=== PATIENT | female | born 1945 | race Caucasian/White ===

== ENCOUNTER → 2019-07-01 | Outpatient (CLI) | payer MEDICARE, OTHER ==
--- NOTE | 2019-07-01 11:25 | Diagnostic Imaging Report ---
PROCEDURE: CT head without contrast. TECHNIQUE: Multiple contiguous axial images were obtained through the brain without the use of intravenous contrast. Auto Exposure Controls were utilized during the CT exam to meet ALARA standards for radiation dose reduction. INDICATION: Evaluate for metastatic disease. Recent breast biopsy. COMPARISON: None. FINDINGS: The ventricles and cortical sulci are age-appropriate. There is no midline shift or mass-effect. No acute intracranial hemorrhage is seen. There is no CT evidence of acute territorial ischemia. No focal masses or collections are present. The calvarium is intact. The visualized paranasal sinuses are clear. IMPRESSION: No hemorrhage or focal intra-axial mass. No CT evidence of large acute territorial ischemia. Dictated by: Dictated on workstation # [id number]
--- NOTE | 2019-07-01 11:39 | Diagnostic Imaging Report ---
PROCEDURE: CT chest, abdomen, and pelvis without contrast. TECHNIQUE: Multiple contiguous axial images were obtained through the chest, abdomen, and pelvis without the use of intravenous contrast. Auto Exposure Controls were utilized during the CT exam to meet ALARA standards for radiation dose reduction. INDICATION: Breast biopsy/breast lump CT CHEST: There is a lobulated 8.5 x 4.6 cm solid mass along the upper aspect of the left breast. There is loss of fat plane between the mass and underlying pectoralis muscle. There is no evidence of bone destruction. There are multiple enlarged left axillary lymph nodes measuring up to 2 cm long axis. In addition there is an approximately 1.9 x 0.9 cm nodule in the upper central right breast. There is mild hiatal hernia. There is no evidence of lung mass. No significant pleural or pericardial fluid is identified. There is sclerotic focus within T5 vertebral body of uncertain significance. IMPRESSION: Dominant mass in the left breast compatible with breast cancer. There is evidence of metastatic disease to the left axilla. In addition there is a suspicious 1.9 x 0.9 cm nodule in the central right breast which could be correlated with mammography. Nonspecific sclerotic focus at T5 vertebra. Bone scan may be of value to assess for osseous metastatic disease. CT abdomen and pelvis: There is mild low-density in the liver without focal hepatic or splenic lesion. Mild hiatal hernia is noted. There is no evidence of gallbladder, pancreatic or adrenal gland lesion. Kidneys are also unremarkable apart from a 1.5 cm exophytic cyst medially in the right kidney. There is no evidence of appendiceal inflammation. No bowel obstruction is identified. Unopacified bladder is unremarkable. IMPRESSION: No evidence of acute abnormality or metastatic disease within the abdomen or pelvis. Dictated by: Dictated on workstation # [id number]
--- NOTE | 2019-07-01 14:19 | Diagnostic Imaging Report ---
INDICATION: Left breast carcinoma. TECHNIQUE: Patient was administered 26.4 mCi technetium 99m MDP intravenously and whole body imaging was performed after three-hour delay. COMPARISON: No prior bone scans are available for comparison. Correlation is made with CT study from earlier the same day. FINDINGS: There is normal uptake of activity by the axial and appendicular skeleton. There is uptake by the kidneys with excretion into the urinary bladder. There is an abnormal focus of increased uptake involving the upper thoracic vertebral body, approximately T5. This likely correlates with the sclerotic focus at T5 noted on CT from the same day. There is also an area of uptake in the left iliac bone. There is a vague area of sclerosis at this location noted on CT measuring 16 mm. This is suggestive of a metastatic lesion. No other suspicious foci are identified. IMPRESSION: Findings suggestive of osseous metastases involving the T5 vertebral body as well as the left iliac bone. Dictated by: Dictated on workstation # [id number]
== END ==
LOC: CARD 10:33
PROVIDERS: ATTEND Internal Medicine
DX: C50.212 Malignant neoplasm of upper-inner quadrant of left female breast (principal); C77.3 Secondary and unspecified malignant neoplasm of axilla and upper limb lymph nodes
CPT/HCPCS: 70450; 71250; 74176; 78306

== ENCOUNTER 2019-07-15 09:40 | Outpatient (CLI) | payer MEDICARE, OTHER ==
[~2019-07-15] VITALS: Ht 162.6 cm; Wt 88.6 kg
[2019-07-15] MEDS ORDERED: C,E,1CAP PO (10:02)
[2019-07-15] MEDS ORDERED: MV-M1TAB57 PO (10:02)
[2019-07-16] MEDS ORDERED: HYDR-34 PO (11:41)
== END 2019-07-15 10:02 | disposition home or self-care (01) ==
LOC: PREOP 09:40
PROVIDERS: ATTEND Surgery
DX: Z01.818 Encounter for other preprocedural examination (principal)

== ENCOUNTER 2019-07-16 08:40 | Day surgery (SDC) | payer MEDICARE, OTHER ==
--- NOTE | 2019-07-15 14:58 | HISTORY AND PHYSICAL ---
DATE OF SERVICE: ATTENDING PHYSICIAN: Dr. Cartagena and Sia Oates, PRODUCTION POSTING CLERK PROCEDURE DATE: 07/16/2019. HISTORY OF PRESENT ILLNESS: The patient is a 73-year-old female, who is known to us. She was initially seen by us approximately two weeks ago for left breast biopsy for left breast distortion as well as retraction. At that time, she was found to have macerated areas as well as necrotic tissue of the left breast. It was a firm and fixed. There was no identifiable nipple or areola at that time. She did undergo a punch biopsy of the left breast tissue, which did come back as infiltrating mammary carcinoma, lobular type. She did also have palpable lymphadenopathy of the left axilla at that time. She was referred over to Oncology and underwent further testing as well as workup and reports that she was found to have metastatic disease to the spine. She reports that she was then referred back over to us in need of a PowerPort for chemotherapy. PAST MEDICAL HISTORY: None. PAST SURGICAL HISTORY: ORIF to the right arm in 1954, tonsillectomy in 1958 and in 1977. ALLERGIES: No known drug allergies. MEDICATIONS: None. SOCIAL HISTORY: Negative for smoke. Rare for alcohol. FAMILY HISTORY: Mother with colon cancer at 90 years of age, diabetes and hypertension. Brother with lung cancer at 43 years of age, diabetes and hypertension. Maternal cousins x3 with breast cancer. REVIEW OF SYSTEMS: A well-nourished female in no acute distress. She is not experiencing any shortness of breath or difficulty breathing. No chest pain, palpitations or diaphoresis. No nausea, vomiting, or abdominal pain. No diarrhea or constipation. No red blood per rectum. No dark tarry stools. No fever or chills. No recent inadvertent weight loss. All other review of systems are negative. PHYSICAL EXAMINATION: VITAL SIGNS: Stable. Current weight is 195.3 at 5 feet 4 inches. CHEST: Clear. Good breath sounds bilaterally. HEART: Regular, no murmurs. EXTREMITIES: No lower extremity edema. Negative Homans sign. HEENT: No scleral icterus. No cervical lymphadenopathy. ABDOMEN: Soft, nontender and nondistended. BREASTS: There is distortion of the left breast that does appear to be retracted in the middle of the breast with areas of maceration and necrotic tissue. This is firm and fixed upon palpation. There is no discharge noted. There is no visible nipple areola. There is palpable lymphadenopathy of the left axilla. There were no palpable masses of the right breast. SKIN: Warm, dry and pink. NEUROLOGIC: Awake, alert and oriented x3. ASSESSMENT AND PLAN: A 73-year-old female with left metastatic breast cancer. At this time, she is needing to undergo chemotherapy and thus will need a PowerPort. The risks and benefits of the procedure as well as the procedure and home care instructions were explained to the patient. The patient verbalized understanding of instructions and agrees to this plan. At this time, we will proceed with placement of an internal Groshong PowerPort Catheter. Job ID: [id number] DocumentID: [id number] Dictated Date: 07/14/2019 17:53:09 Felting Machine Operator Helper Date: 07/14/2019 18:21:23 Dictated By: USAMA ISSA APRN
[~2019-07-16] VITALS: Ht 162.6 cm; Wt 88.6 kg
[2019-07-16] VITALS (10 sets, daily range): BP systolic 122–161; BP diastolic 60–84
[~2019-07-16 08:40] MED LIST: C,E,1CAP PO; MV-M1TAB57 PO
[2019-07-16] MEDS ORDERED: LACTATED RINGERS 1,000 ML IV PRN (08:53)
[2019-07-16] MEDS ORDERED: ceFAZolin 2 GM IV Premixed 50 ML ONE (08:54)
[2019-07-16] MEDS ORDERED: ceFAZolin 2 GM IV Premixed 50 ML IV ONE (09:00)
[2019-07-16] MEDS ORDERED: 0.9% SODIUM CHLORIDE PF INJ 20 ML VIAL ONE ×2 (09:51→11:05)
[2019-07-16] MEDS ORDERED: HEParin (CENTRAL IV FLUSH) 500 UNIT/5 ML SYR ONE (09:51)
[2019-07-16] MEDS ORDERED: BUP/EPI 0.5% 1:200,000 (SENSORCAINE) 30 ML VIAL ONE ×2 (09:51→11:05)
[2019-07-16] MEDS ORDERED: proPOfol 200 MG/20 ML (DIPRIVAN) VIAL IV ONE (10:00)
[2019-07-16] MEDS ORDERED: LIDOCAINE PF 2% 5 ML (XYLOCAINE) VIAL ONE (10:00)
[2019-07-16] MEDS ORDERED: MIDAZOLAM 2 MG/2 ML (VERSED) VIAL ONE (10:01)
[2019-07-16] MEDS ORDERED: fentaNYL INJECTION 100 MCG/2 ML AMP ONE (10:01)
--- NOTE | 2019-07-16 11:39 | Progress Note-Pre Operative ---
Pre-Operative Progress Note H&P Reviewed The H&P was reviewed, patient examined and no changes noted. Date Seen by Provider: Jul 16, 2019 Time Seen by Provider: 10:00 Date H&P Reviewed: Jul 16, 2019 Time H&P Reviewed: 10:00 Pre-Operative Diagnosis: metastatic left breast cancer RAFAT WADE MD Jul 16, 2019 11:39 POS
[2019-07-16] MEDS ORDERED: HYDR-34 PO (11:41)
--- NOTE | 2019-07-16 11:42 | Discharge Inst-Surgical ---
D/C Lap Instructions-KIDO New, Converted, or Re-Newed RX: RX on Chart Follow Up PRN Activity as tolerated OK to access and use port at any time. Regular Diet Symptoms to Report: Fever over 101 degree F, Nausea/Vomiting Infection Signs and Symptoms to report: Increased redness, Foul odor of wound, Increased drainage Bathing instructions: May shower Operative Area Clean/Dry; Keep incision clean/dry If any problems/questions: Contact your physician or go to Emergency Room RAFAT WADE MD Jul 16, 2019 11:42 POS
[2019-07-16] MEDS ORDERED: morphine INJ 10 MG/ML 1ML (SYR OR VIAL) IVP PRN ×2 (11:45)
[2019-07-16] MEDS ORDERED: HYDROcodone/APAP 5 MG/325 MG (LORTAB) TAB PO ONE (11:45)
[2019-07-16] MEDS ORDERED: ACETAMINOPHEN 325 MG TABLET PO PRN (11:45)
[2019-07-16] MEDS ORDERED: ONDANSETRON 4 MG/2 ML (SDV) Z0FRAN IVP PRN (11:45)
[2019-07-16] MEDS ORDERED: MEPERIDINE (DEMEROL) INJ 50 MG/ML IVP ONE (12:15)
--- NOTE | 2019-07-16 12:33 | Diagnostic Imaging Report ---
INDICATION: Left breast cancer FINDINGS: A subclavian catheter has its tip at the SVC. There is no pneumothorax. Heart is enlarged. There is borderline vascular congestion but no sheyla edema, pneumonia or pleural fluid. IMPRESSION: Central line in the SVC. No pneumothorax. Borderline cardiomegaly and vascular congestion but no sheyla edema or pneumonia. Dictated by: Dictated on workstation # [id number]
--- NOTE | 2019-07-16 14:02 | Diagnostic Imaging Report ---
INDICATION: History of breast cancer, undergoing port placement. TECHNIQUE: Single intraprocedural images right upper chest. FINDINGS/ IMPRESSION: The hospital radiology department provided fluoroscopic imaging for the clinical service in support of an interventional procedure. A radiologist was not involved in the procedure. Please reference the operating provider's procedure note. Single intraprocedural image demonstrates a right subclavian [id number]-[id number]-[id number] catheter to be present. The catheter is incompletely imaged. Tip projects over the right paramediastinal region. Fluoroscopy Time: 7.7 seconds. Dictated by: Dictated on workstation # [id number]
--- NOTE | 2019-07-16 17:16 | Anesthesia-General Post-Op ---
MAC Patient Condition Mental Status/LOC: Same as Preop Cardiovascular: Satisfactory Nausea/Vomiting: Absent Respiratory: Satisfactory Pain: Controlled Complications: Absent Post Op Complications Complications None Follow Up Care/Instructions Patient Instructions None needed. Anesthesiology Discharge Order Discharge Order Patient was seen after the procedure and she was doing well, no complaints, stable vital signs, no apparent adverse anesthesia problems. GALE BARRETT DO Jul 16, 2019 17:16 POS
--- NOTE | 2019-07-16 19:36 | OPERATIVE REPORT ---
DATE OF SERVICE: 07/16/2019 ATTENDING PRIMARY CARE PHYSICIAN: Dr. Jose Cartagena. PREOPERATIVE DIAGNOSIS: Metastatic left breast cancer. POSTOPERATIVE DIAGNOSIS: Metastatic left breast cancer. PROCEDURE: Placement of right subclavian Groshong implantable catheter under fluoroscopy. SURGEON: Rafta Wade MD ANESTHESIA: Monitored anesthesia care with local. ESTIMATED BLOOD LOSS: Minimal. FINDINGS: Catheter tip at superior vena cava - right atrial junction. DISPOSITION: The patient tolerated the procedure well. INDICATIONS: The patient is a 73-year-old female who was seen by her POLITICAL SCIENCE INSTRUCTOR clinician and was found to have a large fungating breast mass along the left breast. This was clinically worrisome for cancer and this was confirmed by incisional biopsy. She then had further workup including a PET scan and CT scan, which did show a chest wall skin involvement as well as metastatic disease to the bone as well as lung. She has been seen by Oncology and the recommendation was to proceed with hormonal therapy as well as chemotherapy and will need a Groshong implantable catheter. DESCRIPTION OF PROCEDURE: The patient was brought to the operating room, laid supine on the table. After adequate IV pain and sedative medications and monitored anesthesia care, the chest and neck were prepped and draped in standard surgical fashion. A 1% lidocaine with epinephrine was used to anesthetize the overlying skin in the right subclavian region and the right subclavian vein was cannulated with drawing of venous blood. The guidewire was then inserted under fluoroscopy. The cannulating needle was removed and a skin incision was made using a 15 blade. The dilator and sheath were then placed over the guidewire. Guidewire and dilator were then removed and the Groshong catheter was then placed through the sheath until the catheter tip was at the superior vena cava - right atrial junction. The sheath was then removed. The inner wire within the catheter was then removed. The catheter was cut down to size and the PowerPort placed onto the catheter. The skin incision was then extended laterally using a 15 blade and a subcutaneous reservoir was then created along the chest between the subcutaneous fat and the anterior pectoralis fascia using blunt dissection as well as electrocautery with visualization of good hemostasis. The port was then placed into the reservoir and sutured to the anterior pectoralis fascia using interrupted 3-0 Vicryl sutures. Subcutaneous tissue was then reapproximated using 3-0 Vicryl interrupted sutures and the skin was closed using 4-0 Monocryl running subcuticular suture. Wound was then cleaned and covered with Dermabond. The patient tolerated the procedure well. We will get a post-procedure chest x-ray and once confirmation of placement of the port, it may be accessed and used at any time. Job ID: [id number] DocumentID: [id number] Dictated Date: 07/16/2019 11:50:53 Afternoon Babysitter Date: 07/16/2019 19:35:46 Dictated By: RAFAT WADE MD
== END 2019-07-16 13:50 | disposition home or self-care (01) ==
LOC: SDC 08:40
PROVIDERS: ATTEND Surgery
DX: C50.912 Malignant neoplasm of unspecified site of left female breast (principal); C79.51 Secondary malignant neoplasm of bone; Z79.891 Long term (current) use of opiate analgesic; Z90.89 Acquired absence of other organs; Z80.0 Family history of malignant neoplasm of digestive organs; Z83.3 Family history of diabetes mellitus; Z82.49 Family history of ischemic heart disease and other diseases of the circulatory system; Z80.1 Family history of malignant neoplasm of trachea, bronchus and lung; Z80.3 Family history of malignant neoplasm of breast
CPT/HCPCS: 71045; 87081

== ENCOUNTER → 2019-07-23 | Outpatient (CLI) | payer MEDICARE, OTHER ==
[~2019-07-23] MED LIST changes: +CATHETER FLUSH 10 ML SYR IV PRN; +HEParin (CENTRAL IV FLUSH) 500 UNIT/5 ML SYR ONE; +HYDR-34 PO
--- NOTE | 2019-07-23 13:49 | Diagnostic Imaging Report ---
INDICATION: Left breast carcinoma. TECHNIQUE: Patient was administered 32.3 mCi technetium 99m pertechnetate labeled to the patient's red blood cells and gated cardiac imaging was performed utilizing first pass technique. FINDINGS: Left ventricular ejection fraction is normal at 63%. IMPRESSION: Left ventricular ejection fraction of 63%. Dictated by: Dictated on workstation # [id number]
== END ==
LOC: CARD 12:24
PROVIDERS: ATTEND Nurse Practitioner Adult Health
DX: Z51.11 Encounter for antineoplastic chemotherapy (principal); C50.412 Malignant neoplasm of upper-outer quadrant of left female breast; C77.3 Secondary and unspecified malignant neoplasm of axilla and upper limb lymph nodes; C79.51 Secondary malignant neoplasm of bone
CPT/HCPCS: 78472

== ENCOUNTER 2019-09-28 09:00 | Outpatient (RCR) | payer MEDICARE, OTHER ==
[2019-07-08 09:30] LABS: BASOPHILS % (AUTO) 1 % (0-10); EOSINOPHILS # (AUTO) 0.1 10^3/uL (0.0-0.3); EOSINOPHILS % (AUTO) 2 % (0-10); HEMATOCRIT 46 % (35-52); HEMOGLOBIN 14.5 G/DL (11.5-16.0); LYMPHOCYTES # (AUTO) 1.8 X 10^3 (1.0-4.0); LYMPHOCYTES % (AUTO) 29 % (12-44); MEAN CORPUSCULAR HEMOGLOBIN 29 PG (25-34); MEAN CORPUSCULAR HGB CONC 32 G/DL (32-36); MEAN CORPUSCULAR VOLUME 90 FL (80-99); MEAN PLATELET VOLUME 9.5 FL (7.4-10.4); MONOCYTES # (AUTO) 0.5 X 10^3 (0.0-1.0); MONOCYTES % (AUTO) 8 % (0-12); NEUTROPHILS # (AUTO) 3.9 X 10^3 (1.8-7.8); NEUTROPHILS % (AUTO) 62 % (42-75); PLATELET COUNT 321 10^3/uL (130-400); RED CELL DISTRIBUTION WIDTH 14.2 % (10.0-14.5); WHITE BLOOD COUNT 6.3 10^3/uL (4.3-11.0)
[2019-07-08 09:51] LABS: ALANINE AMINOTRANSFERASE 69 U/L (0-55); ALBUMIN 4.1 GM/DL (3.2-4.5); ALKALINE PHOSPHATASE 70 U/L (40-136); BILIRUBIN,TOTAL 0.5 MG/DL (0.1-1.0); BUN/CREATININE RATIO 18; CALCIUM 9.4 MG/DL (8.5-10.1); CARBON DIOXIDE 25 MMOL/L (21-32); CHLORIDE 104 MMOL/L (98-107); CREATININE SERUM 0.76 MG/DL (0.60-1.30); GFR ESTIMATED > 60; GLUCOSE 163 MG/DL (70-105); POTASSIUM 3.8 MMOL/L (3.6-5.0); SODIUM 141 MMOL/L (135-145); TOTAL PROTEIN 7.7 GM/DL (6.4-8.2)
[2019-07-27 09:41] LABS: ALANINE AMINOTRANSFERASE 42 U/L (0-55); ALKALINE PHOSPHATASE 74 U/L (40-136); BILIRUBIN,TOTAL 0.4 MG/DL (0.1-1.0); BUN/CREATININE RATIO 18; CALCIUM 8.8 MG/DL (8.5-10.1); CARBON DIOXIDE 23 MMOL/L (21-32); CHLORIDE 108 MMOL/L (98-107); CREATININE SERUM 0.72 MG/DL (0.60-1.30); GFR ESTIMATED > 60; GLUCOSE 141 MG/DL (70-105); POTASSIUM 3.7 MMOL/L (3.6-5.0); SODIUM 140 MMOL/L (135-145); TOTAL PROTEIN 7.2 GM/DL (6.4-8.2)
[2019-08-03 09:23] LABS: BASOPHILS % (AUTO) 0 % (0-10); EOSINOPHILS % (AUTO) 0 % (0-10); HEMATOCRIT 40 % (35-52); HEMOGLOBIN 13.1 G/DL (11.5-16.0); LYMPHOCYTES % (AUTO) 21 % (12-44); MEAN CORPUSCULAR HEMOGLOBIN 29 PG (25-34); MEAN CORPUSCULAR HGB CONC 32 G/DL (32-36); MEAN CORPUSCULAR VOLUME 90 FL (80-99); MEAN PLATELET VOLUME 9.8 FL (7.4-10.4); MONOCYTES # (AUTO) 0.4 X 10^3 (0.0-1.0); MONOCYTES % (AUTO) 9 % (0-12); NEUTROPHILS # (AUTO) 3.4 X 10^3 (1.8-7.8); NEUTROPHILS % (AUTO) 70 % (42-75); PLATELET COUNT 314 10^3/uL (130-400); RED CELL DISTRIBUTION WIDTH 13.9 % (10.0-14.5); WHITE BLOOD COUNT 4.8 10^3/uL (4.3-11.0)
[2019-08-03 09:55] LABS: BUN/CREATININE RATIO 16; CALCIUM 8.8 MG/DL (8.5-10.1); CARBON DIOXIDE 21 MMOL/L (21-32); CHLORIDE 108 MMOL/L (98-107); CREATININE SERUM 0.73 MG/DL (0.60-1.30); GFR ESTIMATED > 60; GLUCOSE 127 MG/DL (70-105); POTASSIUM 3.8 MMOL/L (3.6-5.0); SODIUM 139 MMOL/L (135-145)
[2019-08-10 09:27] LABS: BASOPHILS % (AUTO) 0 % (0-10); EOSINOPHILS % (AUTO) 0 % (0-10); HEMATOCRIT 41 % (35-52); HEMOGLOBIN 13.5 G/DL (11.5-16.0); LYMPHOCYTES # (AUTO) 1.3 X 10^3 (1.0-4.0); LYMPHOCYTES % (AUTO) 27 % (12-44); MEAN CORPUSCULAR HEMOGLOBIN 29 PG (25-34); MEAN CORPUSCULAR HGB CONC 33 G/DL (32-36); MEAN CORPUSCULAR VOLUME 90 FL (80-99); MEAN PLATELET VOLUME 9.8 FL (7.4-10.4); MONOCYTES # (AUTO) 0.4 X 10^3 (0.0-1.0); MONOCYTES % (AUTO) 9 % (0-12); NEUTROPHILS # (AUTO) 3.2 X 10^3 (1.8-7.8); NEUTROPHILS % (AUTO) 64 % (42-75); PLATELET COUNT 318 10^3/uL (130-400); WHITE BLOOD COUNT 4.9 10^3/uL (4.3-11.0)
[2019-08-10 09:58] LABS: BUN/CREATININE RATIO 18; CARBON DIOXIDE 20 MMOL/L (21-32); CHLORIDE 106 MMOL/L (98-107); CREATININE SERUM 0.76 MG/DL (0.60-1.30); GFR ESTIMATED > 60; GLUCOSE 152 MG/DL (70-105); POTASSIUM 3.6 MMOL/L (3.6-5.0); SODIUM 140 MMOL/L (135-145)
[2019-08-17 09:04] LABS: BASOPHILS % (AUTO) 1 % (0-10); EOSINOPHILS % (AUTO) 0 % (0-10); HEMATOCRIT 39 % (35-52); HEMOGLOBIN 12.6 G/DL (11.5-16.0); LYMPHOCYTES # (AUTO) 1.2 X 10^3 (1.0-4.0); LYMPHOCYTES % (AUTO) 28 % (12-44); MEAN CORPUSCULAR HEMOGLOBIN 30 PG (25-34); MEAN CORPUSCULAR HGB CONC 33 G/DL (32-36); MEAN CORPUSCULAR VOLUME 91 FL (80-99); MEAN PLATELET VOLUME 9.4 FL (7.4-10.4); MONOCYTES # (AUTO) 0.5 X 10^3 (0.0-1.0); MONOCYTES % (AUTO) 12 % (0-12); NEUTROPHILS # (AUTO) 2.4 X 10^3 (1.8-7.8); NEUTROPHILS % (AUTO) 59 % (42-75); PLATELET COUNT 326 10^3/uL (130-400); RED CELL DISTRIBUTION WIDTH 14.3 % (10.0-14.5); WHITE BLOOD COUNT 4.1 10^3/uL (4.3-11.0)
[2019-08-17 09:24] LABS: BUN/CREATININE RATIO 16; CALCIUM 8.6 MG/DL (8.5-10.1); CARBON DIOXIDE 20 MMOL/L (21-32); CHLORIDE 108 MMOL/L (98-107); CREATININE SERUM 0.68 MG/DL (0.60-1.30); GFR ESTIMATED > 60; GLUCOSE 137 MG/DL (70-105); POTASSIUM 3.6 MMOL/L (3.6-5.0); SODIUM 141 MMOL/L (135-145)
[2019-08-24 09:15] LABS: BASOPHILS % (AUTO) 1 % (0-10); EOSINOPHILS # (AUTO) 0.1 10^3/uL (0.0-0.3); EOSINOPHILS % (AUTO) 1 % (0-10); HEMATOCRIT 40 % (35-52); HEMOGLOBIN 13.1 G/DL (11.5-16.0); LYMPHOCYTES # (AUTO) 1.5 X 10^3 (1.0-4.0); LYMPHOCYTES % (AUTO) 26 % (12-44); MEAN CORPUSCULAR HEMOGLOBIN 29 PG (25-34); MEAN CORPUSCULAR HGB CONC 33 G/DL (32-36); MEAN CORPUSCULAR VOLUME 88 FL (80-99); MONOCYTES # (AUTO) 0.8 X 10^3 (0.0-1.0); MONOCYTES % (AUTO) 15 % (0-12); NEUTROPHILS # (AUTO) 3.4 X 10^3 (1.8-7.8); NEUTROPHILS % (AUTO) 58 % (42-75); PLATELET COUNT 310 10^3/uL (130-400); RED CELL DISTRIBUTION WIDTH 14.8 % (10.0-14.5); WHITE BLOOD COUNT 5.8 10^3/uL (4.3-11.0)
[2019-08-24 09:42] LABS: ALANINE AMINOTRANSFERASE 66 U/L (0-55); ALBUMIN 3.9 GM/DL (3.2-4.5); ALKALINE PHOSPHATASE 74 U/L (40-136); BILIRUBIN,TOTAL 0.3 MG/DL (0.1-1.0); BUN/CREATININE RATIO 14; CALCIUM 8.8 MG/DL (8.5-10.1); CARBON DIOXIDE 21 MMOL/L (21-32); CHLORIDE 110 MMOL/L (98-107); CREATININE SERUM 0.72 MG/DL (0.60-1.30); GFR ESTIMATED > 60; GLUCOSE 130 MG/DL (70-105); POTASSIUM 3.8 MMOL/L (3.6-5.0); SODIUM 141 MMOL/L (135-145); TOTAL PROTEIN 6.8 GM/DL (6.4-8.2)
[2019-08-30 13:15] LABS: BASOPHILS % (AUTO) 1 % (0-10); EOSINOPHILS % (AUTO) 0 % (0-10); HEMATOCRIT 40 % (35-52); HEMOGLOBIN 12.8 G/DL (11.5-16.0); LYMPHOCYTES # (AUTO) 1.2 X 10^3 (1.0-4.0); LYMPHOCYTES % (AUTO) 21 % (12-44); MEAN CORPUSCULAR HEMOGLOBIN 29 PG (25-34); MEAN CORPUSCULAR HGB CONC 32 G/DL (32-36); MEAN CORPUSCULAR VOLUME 90 FL (80-99); MEAN PLATELET VOLUME 9.8 FL (7.4-10.4); MONOCYTES # (AUTO) 0.4 X 10^3 (0.0-1.0); MONOCYTES % (AUTO) 7 % (0-12); NEUTROPHILS # (AUTO) 3.9 X 10^3 (1.8-7.8); NEUTROPHILS % (AUTO) 71 % (42-75); PLATELET COUNT 288 10^3/uL (130-400); RED CELL DISTRIBUTION WIDTH 14.5 % (10.0-14.5); WHITE BLOOD COUNT 5.4 10^3/uL (4.3-11.0)
[2019-08-30 13:34] LABS: BUN/CREATININE RATIO 18; CALCIUM 8.5 MG/DL (8.5-10.1); CARBON DIOXIDE 21 MMOL/L (21-32); CHLORIDE 107 MMOL/L (98-107); CREATININE SERUM 0.74 MG/DL (0.60-1.30); GFR ESTIMATED > 60; GLUCOSE 180 MG/DL (70-105); POTASSIUM 4.1 MMOL/L (3.6-5.0); SODIUM 139 MMOL/L (135-145)
[2019-09-07 09:15] LABS: BASOPHILS % (AUTO) 1 % (0-10); EOSINOPHILS # (AUTO) 0.2 10^3/uL (0.0-0.3); EOSINOPHILS % (AUTO) 4 % (0-10); HEMATOCRIT 38 % (35-52); HEMOGLOBIN 12.3 G/DL (11.5-16.0); LYMPHOCYTES # (AUTO) 1.4 X 10^3 (1.0-4.0); LYMPHOCYTES % (AUTO) 34 % (12-44); MEAN CORPUSCULAR HEMOGLOBIN 29 PG (25-34); MEAN CORPUSCULAR HGB CONC 33 G/DL (32-36); MEAN CORPUSCULAR VOLUME 91 FL (80-99); MEAN PLATELET VOLUME 9.5 FL (7.4-10.4); MONOCYTES # (AUTO) 0.5 X 10^3 (0.0-1.0); MONOCYTES % (AUTO) 13 % (0-12); NEUTROPHILS % (AUTO) 49 % (42-75); PLATELET COUNT 308 10^3/uL (130-400); RED CELL DISTRIBUTION WIDTH 14.9 % (10.0-14.5); WHITE BLOOD COUNT 4.2 10^3/uL (4.3-11.0)
[2019-09-07 09:32] LABS: BUN/CREATININE RATIO 15; CALCIUM 8.5 MG/DL (8.5-10.1); CARBON DIOXIDE 20 MMOL/L (21-32); CHLORIDE 110 MMOL/L (98-107); CREATININE SERUM 0.68 MG/DL (0.60-1.30); GFR ESTIMATED > 60; GLUCOSE 113 MG/DL (70-105); POTASSIUM 3.7 MMOL/L (3.6-5.0); SODIUM 143 MMOL/L (135-145)
[2019-09-14 09:12] LABS: BASOPHILS % (AUTO) 1 % (0-10); EOSINOPHILS % (AUTO) 0 % (0-10); HEMATOCRIT 41 % (35-52); HEMOGLOBIN 13.4 G/DL (11.5-16.0); LYMPHOCYTES # (AUTO) 1.5 X 10^3 (1.0-4.0); LYMPHOCYTES % (AUTO) 32 % (12-44); MEAN CORPUSCULAR HEMOGLOBIN 30 PG (25-34); MEAN CORPUSCULAR HGB CONC 33 G/DL (32-36); MEAN CORPUSCULAR VOLUME 90 FL (80-99); MEAN PLATELET VOLUME 9.9 FL (7.4-10.4); MONOCYTES # (AUTO) 0.5 X 10^3 (0.0-1.0); MONOCYTES % (AUTO) 11 % (0-12); NEUTROPHILS # (AUTO) 2.6 X 10^3 (1.8-7.8); NEUTROPHILS % (AUTO) 57 % (42-75); PLATELET COUNT 303 10^3/uL (130-400); RED CELL DISTRIBUTION WIDTH 15.2 % (10.0-14.5); WHITE BLOOD COUNT 4.6 10^3/uL (4.3-11.0)
[2019-09-14 09:28] LABS: BUN/CREATININE RATIO 19; CALCIUM 9.2 MG/DL (8.5-10.1); CARBON DIOXIDE 18 MMOL/L (21-32); CHLORIDE 109 MMOL/L (98-107); CREATININE SERUM 0.68 MG/DL (0.60-1.30); GFR ESTIMATED > 60; GLUCOSE 118 MG/DL (70-105); POTASSIUM 3.9 MMOL/L (3.6-5.0); SODIUM 141 MMOL/L (135-145)
[2019-09-21 10:42] LABS: BASOPHILS % (AUTO) 1 % (0-10); EOSINOPHILS # (AUTO) 0.1 10^3/uL (0.0-0.3); EOSINOPHILS % (AUTO) 1 % (0-10); HEMATOCRIT 40 % (35-52); HEMOGLOBIN 12.8 G/DL (11.5-16.0); LYMPHOCYTES # (AUTO) 1.5 X 10^3 (1.0-4.0); LYMPHOCYTES % (AUTO) 29 % (12-44); MEAN CORPUSCULAR HEMOGLOBIN 29 PG (25-34); MEAN CORPUSCULAR HGB CONC 32 G/DL (32-36); MEAN CORPUSCULAR VOLUME 90 FL (80-99); MEAN PLATELET VOLUME 9.2 FL (7.4-10.4); MONOCYTES # (AUTO) 0.8 X 10^3 (0.0-1.0); MONOCYTES % (AUTO) 16 % (0-12); NEUTROPHILS # (AUTO) 2.9 X 10^3 (1.8-7.8); NEUTROPHILS % (AUTO) 54 % (42-75); PLATELET COUNT 309 10^3/uL (130-400); RED CELL DISTRIBUTION WIDTH 15.4 % (10.0-14.5); WHITE BLOOD COUNT 5.4 10^3/uL (4.3-11.0)
[2019-09-21 11:09] LABS: ALANINE AMINOTRANSFERASE 83 U/L (0-55); ALBUMIN 4.1 GM/DL (3.2-4.5); ALKALINE PHOSPHATASE 66 U/L (40-136); BILIRUBIN,TOTAL 0.5 MG/DL (0.1-1.0); BUN/CREATININE RATIO 16; CALCIUM 9.1 MG/DL (8.5-10.1); CARBON DIOXIDE 20 MMOL/L (21-32); CHLORIDE 109 MMOL/L (98-107); GFR ESTIMATED > 60; GLUCOSE 109 MG/DL (70-105); POTASSIUM 3.5 MMOL/L (3.6-5.0); SODIUM 141 MMOL/L (135-145); TOTAL PROTEIN 6.9 GM/DL (6.4-8.2)
[~2019-09-28] VITALS: Ht 161.3 cm; Wt 88.9 kg
[~2019-09-28 09:00] MED LIST changes: -CATHETER FLUSH 10 ML SYR IV PRN; -HEParin (CENTRAL IV FLUSH) 500 UNIT/5 ML SYR ONE; +NS IV 1000 ML (CANCER CTR) IV SCH; +NS IV SCH; +ONDANSETRON MDV (CANCER CENTER 16 MG, DEXAMETHASONE INJECTION 10 MG in NS (IVPB) CANCER... IV SCH; +PACLitaxel PROTEIN 160 MG in EMPTY IV BAG (PVC) CANCER CTR 1 EA IV SCH; +TRASTUZUMAB IV SCH; +ZOLEDRONIC ACID (CANCER CTR) 4 MG in NS (IVPB) CANCER CENTER 100 ML IV SCH
[2019-09-28 09:20] LABS: BASOPHILS % (AUTO) 1 % (0-10); EOSINOPHILS # (AUTO) 0.1 10^3/uL (0.0-0.3); EOSINOPHILS % (AUTO) 1 % (0-10); HEMATOCRIT 39 % (35-52); HEMOGLOBIN 12.6 G/DL (11.5-16.0); LYMPHOCYTES # (AUTO) 1.1 X 10^3 (1.0-4.0); LYMPHOCYTES % (AUTO) 17 % (12-44); MEAN CORPUSCULAR HEMOGLOBIN 29 PG (25-34); MEAN CORPUSCULAR HGB CONC 32 G/DL (32-36); MEAN CORPUSCULAR VOLUME 90 FL (80-99); MEAN PLATELET VOLUME 9.5 FL (7.4-10.4); MONOCYTES # (AUTO) 0.6 X 10^3 (0.0-1.0); MONOCYTES % (AUTO) 9 % (0-12); NEUTROPHILS # (AUTO) 4.6 X 10^3 (1.8-7.8); NEUTROPHILS % (AUTO) 72 % (42-75); PLATELET COUNT 292 10^3/uL (130-400); RED CELL DISTRIBUTION WIDTH 15.2 % (10.0-14.5); WHITE BLOOD COUNT 6.4 10^3/uL (4.3-11.0)
[2019-09-28 09:46] LABS: BUN/CREATININE RATIO 16; CALCIUM 8.7 MG/DL (8.5-10.1); CARBON DIOXIDE 20 MMOL/L (21-32); CHLORIDE 106 MMOL/L (98-107); CREATININE SERUM 0.73 MG/DL (0.60-1.30); GFR ESTIMATED > 60; GLUCOSE 119 MG/DL (70-105); POTASSIUM 3.7 MMOL/L (3.6-5.0); SODIUM 138 MMOL/L (135-145)
== END 2019-09-30 | disposition home or self-care (01) ==
LOC: ONC 09:00
PROVIDERS: ATTEND Internal Medicine Hematology & Oncology
DX: Z51.11 Encounter for antineoplastic chemotherapy (principal); C50.212 Malignant neoplasm of upper-inner quadrant of left female breast; C77.3 Secondary and unspecified malignant neoplasm of axilla and upper limb lymph nodes
CPT/HCPCS: 36415; 36591; 80048; 80053; 82306; 85025; 86300; 96367; 96375; 96413; 96417; 99213; 99214

== ENCOUNTER → 2019-10-14 | Outpatient (CLI) | payer MEDICARE, OTHER ==
[~2019-10-14] MED LIST changes: +CATHETER FLUSH 10 ML SYR IV PRN; +HOLD METFORMIN - RECEIVED CONTRAST 20 ML VIAL IV SCH; +IOHEXOL 350 MG/ML 100 ML (OMNIPAQUE 350) VIAL IV ONE; +NS 100 ML (IVPB) BAG IV ONE; -NS IV 1000 ML (CANCER CTR) IV SCH; -NS IV SCH; -ONDANSETRON MDV (CANCER CENTER 16 MG, DEXAMETHASONE INJECTION 10 MG in NS (IVPB) CANCER... IV SCH; -PACLitaxel PROTEIN 160 MG in EMPTY IV BAG (PVC) CANCER CTR 1 EA IV SCH; -TRASTUZUMAB IV SCH; -ZOLEDRONIC ACID (CANCER CTR) 4 MG in NS (IVPB) CANCER CENTER 100 ML IV SCH
--- NOTE | 2019-10-14 12:53 | Diagnostic Imaging Report ---
PROCEDURE: CT chest and abdomen with contrast. TECHNIQUE: Multiple contiguous axial images were obtained through the chest and abdomen after the administration of intravenous contrast. Auto Exposure Controls were utilized during the CT exam to meet ALARA standards for radiation dose reduction. INDICATION: Breast carcinoma. COMPARISON: Comparison is made with prior CT from 07/01/2019. CT CHEST: Hyperdense lesion in the upper aspect of the right breast is again noted measuring 1.6 x 1.0 cm compared with 1.9 x 0.9 cm on prior. The previously noted large left breast mass does show some decrease in size, measuring approximately 4.9 x 1.8 cm compared with 8.5 x 4.6 cm. Again, there is loss of the fat plane between the left breast mass and the left chest wall pectoralis musculature. The lymph nodes in the left axilla have reduced in size. The right axilla is unremarkable. No internal mammary lymphadenopathy is detected. No definite hilar or mediastinal lymphadenopathy is detected. There is no pericardial or pleural fluid identified. There is some scarring or atelectasis in the lingula and left lower lobe as well as right middle lobe. No pulmonary nodule or mass is seen. Sclerotic lesion involving approximately T5 vertebral body is again noted. IMPRESSION: 1. Decrease in size of left breast mass since prior CT 07/01/2019 with improving left axillary lymphadenopathy. No definite thoracic lymphadenopathy is seen. There are no findings to suggest pulmonary metastatic disease. Note is made of masslike density in the upper right breast, similar to prior exam. 2. Stable thoracic sclerotic lesion. CT ABDOMEN: The liver demonstrates diffuse low density consistent with hepatic steatosis. No discrete liver mass is identified. The gallbladder is unremarkable. Pancreas and spleen are unremarkable. No adrenal mass is detected. Kidneys are unremarkable. Aorta is non-aneurysmal. No central retroperitoneal or mesenteric lymphadenopathy is seen. The small and large bowel loops are normal caliber. There is no ascites. Osseous structures are unremarkable. IMPRESSION: 1. Hepatic steatosis. 2. No evidence of abdominal lymphadenopathy or metastatic disease. Dictated by: Dictated on workstation # [id number]
--- NOTE | 2019-10-14 15:30 | Diagnostic Imaging Report ---
INDICATION: Breast carcinoma. TECHNIQUE: Patient was administered 26.9 mCi technetium 99m MDP intravenously and whole body imaging was performed after three-hour delay. COMPARISON: Comparison is made with prior whole body bone scan from 07/01/2019. FINDINGS: Uptake of activity by the axial and appendicular skeleton is again noted. There is uptake by the kidneys with excretion into the urinary bladder. The uptake involving T5 vertebral body persists. Uptake in the region of the left iliac bone is also seen, similar to prior. No new focus of tracer accumulation is seen. IMPRESSION: Stable whole body bone scan when compared with exam from 07/01/2019. Dictated by: Dictated on workstation # [id number]
== END ==
LOC: CARD 10:52
PROVIDERS: ATTEND Internal Medicine Hematology & Oncology
DX: C50.812 Malignant neoplasm of overlapping sites of left female breast (principal); C79.51 Secondary malignant neoplasm of bone; K76.0 Fatty (change of) liver, not elsewhere classified
CPT/HCPCS: 71260; 74160; 78306

== ENCOUNTER 2019-12-28 08:49 | Outpatient (RCR) | payer MEDICARE, OTHER ==
[2019-10-05 09:07] LABS: BASOPHILS % (AUTO) 1 % (0-10); EOSINOPHILS % (AUTO) 0 % (0-10); HEMATOCRIT 39 % (35-52); HEMOGLOBIN 12.9 G/DL (11.5-16.0); LYMPHOCYTES # (AUTO) 1.4 X 10^3 (1.0-4.0); LYMPHOCYTES % (AUTO) 34 % (12-44); MEAN CORPUSCULAR HEMOGLOBIN 30 PG (25-34); MEAN CORPUSCULAR HGB CONC 33 G/DL (32-36); MEAN CORPUSCULAR VOLUME 90 FL (80-99); MEAN PLATELET VOLUME 9.6 FL (7.4-10.4); MONOCYTES # (AUTO) 0.4 X 10^3 (0.0-1.0); MONOCYTES % (AUTO) 10 % (0-12); NEUTROPHILS # (AUTO) 2.2 X 10^3 (1.8-7.8); NEUTROPHILS % (AUTO) 55 % (42-75); PLATELET COUNT 329 10^3/uL (130-400); RED CELL DISTRIBUTION WIDTH 15.2 % (10.0-14.5)
[2019-10-05 09:28] LABS: BUN/CREATININE RATIO 22; CALCIUM 9.5 MG/DL (8.5-10.1); CARBON DIOXIDE 21 MMOL/L (21-32); CHLORIDE 107 MMOL/L (98-107); CREATININE SERUM 0.69 MG/DL (0.60-1.30); GFR ESTIMATED > 60; GLUCOSE 125 MG/DL (70-105); POTASSIUM 3.6 MMOL/L (3.6-5.0); SODIUM 140 MMOL/L (135-145)
[2019-10-12 09:19] LABS: BASOPHILS % (AUTO) 1 % (0-10); EOSINOPHILS % (AUTO) 0 % (0-10); HEMATOCRIT 37 % (35-52); HEMOGLOBIN 12.4 G/DL (11.5-16.0); LYMPHOCYTES % (AUTO) 29 % (12-44); MEAN CORPUSCULAR HGB CONC 34 G/DL (32-36); MEAN CORPUSCULAR VOLUME 91 FL (80-99); MEAN PLATELET VOLUME 9.5 FL (7.4-10.4); MONOCYTES # (AUTO) 0.4 X 10^3 (0.0-1.0); MONOCYTES % (AUTO) 11 % (0-12); NEUTROPHILS # (AUTO) 2.1 X 10^3 (1.8-7.8); NEUTROPHILS % (AUTO) 60 % (42-75); PLATELET COUNT 318 10^3/uL (130-400); RED CELL DISTRIBUTION WIDTH 15.7 % (10.0-14.5); WHITE BLOOD COUNT 3.5 10^3/uL (4.3-11.0)
[2019-10-12 09:21] LABS: MEAN CORPUSCULAR HEMOGLOBIN 30 PG (25-34)
[2019-10-12 09:35] LABS: BUN/CREATININE RATIO 16; CALCIUM 8.5 MG/DL (8.5-10.1); CARBON DIOXIDE 24 MMOL/L (21-32); CHLORIDE 108 MMOL/L (98-107); CREATININE SERUM 0.69 MG/DL (0.60-1.30); GFR ESTIMATED > 60; GLUCOSE 148 MG/DL (70-105); POTASSIUM 3.5 MMOL/L (3.6-5.0); SODIUM 140 MMOL/L (135-145)
[2019-10-19 13:36] LABS: BASOPHILS # (AUTO) 0.1 10^3/uL (0.0-0.1); BASOPHILS % (AUTO) 1 % (0-10); EOSINOPHILS % (AUTO) 0 % (0-10); HEMATOCRIT 39 % (35-52); HEMOGLOBIN 12.6 G/DL (11.5-16.0); LYMPHOCYTES # (AUTO) 1.3 X 10^3 (1.0-4.0); LYMPHOCYTES % (AUTO) 27 % (12-44); MEAN CORPUSCULAR HEMOGLOBIN 30 PG (25-34); MEAN CORPUSCULAR HGB CONC 33 G/DL (32-36); MEAN CORPUSCULAR VOLUME 91 FL (80-99); MEAN PLATELET VOLUME 9.3 FL (7.4-10.4); MONOCYTES # (AUTO) 0.8 X 10^3 (0.0-1.0); MONOCYTES % (AUTO) 18 % (0-12); NEUTROPHILS # (AUTO) 2.6 X 10^3 (1.8-7.8); NEUTROPHILS % (AUTO) 54 % (42-75); PLATELET COUNT 329 10^3/uL (130-400); RED CELL DISTRIBUTION WIDTH 15.4 % (10.0-14.5); WHITE BLOOD COUNT 4.8 10^3/uL (4.3-11.0)
[2019-10-19 14:00] LABS: ALANINE AMINOTRANSFERASE 82 U/L (0-55); ALBUMIN 3.9 GM/DL (3.2-4.5); ALKALINE PHOSPHATASE 53 U/L (40-136); BILIRUBIN,TOTAL 0.3 MG/DL (0.1-1.0); BUN/CREATININE RATIO 16; CALCIUM 8.2 MG/DL (8.5-10.1); CARBON DIOXIDE 23 MMOL/L (21-32); CHLORIDE 108 MMOL/L (98-107); CREATININE SERUM 0.68 MG/DL (0.60-1.30); GFR ESTIMATED > 60; GLUCOSE 144 MG/DL (70-105); POTASSIUM 3.6 MMOL/L (3.6-5.0); SODIUM 139 MMOL/L (135-145); TOTAL PROTEIN 6.7 GM/DL (6.4-8.2)
[2019-10-26 09:10] LABS: BASOPHILS % (AUTO) 1 % (0-10); EOSINOPHILS % (AUTO) 0 % (0-10); HEMATOCRIT 38 % (35-52); HEMOGLOBIN 12.2 G/DL (11.5-16.0); LYMPHOCYTES # (AUTO) 1.1 X 10^3 (1.0-4.0); LYMPHOCYTES % (AUTO) 19 % (12-44); MEAN CORPUSCULAR HGB CONC 32 G/DL (32-36); MEAN CORPUSCULAR VOLUME 92 FL (80-99); MEAN PLATELET VOLUME 9.8 FL (7.4-10.4); MONOCYTES # (AUTO) 0.4 X 10^3 (0.0-1.0); MONOCYTES % (AUTO) 7 % (0-12); NEUTROPHILS # (AUTO) 4.1 X 10^3 (1.8-7.8); NEUTROPHILS % (AUTO) 73 % (42-75); PLATELET COUNT 296 10^3/uL (130-400); RED CELL DISTRIBUTION WIDTH 15.4 % (10.0-14.5); WHITE BLOOD COUNT 5.7 10^3/uL (4.3-11.0)
[2019-10-26 09:12] LABS: MEAN CORPUSCULAR HEMOGLOBIN 29 PG (25-34)
[2019-10-26 09:27] LABS: BUN/CREATININE RATIO 13; CALCIUM 8.2 MG/DL (8.5-10.1); CARBON DIOXIDE 22 MMOL/L (21-32); CHLORIDE 108 MMOL/L (98-107); GFR ESTIMATED > 60; GLUCOSE 145 MG/DL (70-105); POTASSIUM 3.4 MMOL/L (3.6-5.0); SODIUM 140 MMOL/L (135-145)
[2019-11-02 09:34] LABS: BASOPHILS % (AUTO) 1 % (0-10); EOSINOPHILS # (AUTO) 0.1 10^3/uL (0.0-0.3); EOSINOPHILS % (AUTO) 2 % (0-10); HEMATOCRIT 37 % (35-52); LYMPHOCYTES # (AUTO) 0.9 X 10^3 (1.0-4.0); LYMPHOCYTES % (AUTO) 30 % (12-44); MEAN CORPUSCULAR HEMOGLOBIN 30 PG (25-34); MEAN CORPUSCULAR HGB CONC 33 G/DL (32-36); MEAN CORPUSCULAR VOLUME 92 FL (80-99); MEAN PLATELET VOLUME 10.2 FL (7.4-10.4); MONOCYTES # (AUTO) 0.3 X 10^3 (0.0-1.0); MONOCYTES % (AUTO) 9 % (0-12); NEUTROPHILS # (AUTO) 1.8 X 10^3 (1.8-7.8); NEUTROPHILS % (AUTO) 59 % (42-75); PLATELET COUNT 273 10^3/uL (130-400); RED CELL DISTRIBUTION WIDTH 15.7 % (10.0-14.5); WHITE BLOOD COUNT 3.1 10^3/uL (4.3-11.0)
[2019-11-02 09:46] LABS: ALANINE AMINOTRANSFERASE 84 U/L (0-55); ALBUMIN 3.9 GM/DL (3.2-4.5); ALKALINE PHOSPHATASE 53 U/L (40-136); BILIRUBIN,TOTAL 0.4 MG/DL (0.1-1.0); BUN/CREATININE RATIO 20; CALCIUM 8.6 MG/DL (8.5-10.1); CARBON DIOXIDE 25 MMOL/L (21-32); CHLORIDE 110 MMOL/L (98-107); GFR ESTIMATED > 60; GLUCOSE 141 MG/DL (70-105); POTASSIUM 3.6 MMOL/L (3.6-5.0); SODIUM 142 MMOL/L (135-145); TOTAL PROTEIN 6.3 GM/DL (6.4-8.2)
[2019-11-09 09:20] LABS: BASOPHILS % (AUTO) 1 % (0-10); EOSINOPHILS % (AUTO) 0 % (0-10); HEMATOCRIT 38 % (35-52); HEMOGLOBIN 12.2 G/DL (11.5-16.0); LYMPHOCYTES # (AUTO) 1.1 X 10^3 (1.0-4.0); LYMPHOCYTES % (AUTO) 34 % (12-44); MEAN CORPUSCULAR HEMOGLOBIN 30 PG (25-34); MEAN CORPUSCULAR HGB CONC 32 G/DL (32-36); MEAN CORPUSCULAR VOLUME 92 FL (80-99); MONOCYTES # (AUTO) 0.3 X 10^3 (0.0-1.0); MONOCYTES % (AUTO) 10 % (0-12); NEUTROPHILS # (AUTO) 1.8 X 10^3 (1.8-7.8); NEUTROPHILS % (AUTO) 55 % (42-75); PLATELET COUNT 314 10^3/uL (130-400); WHITE BLOOD COUNT 3.3 10^3/uL (4.3-11.0)
[2019-11-09 09:44] LABS: ALANINE AMINOTRANSFERASE 80 U/L (0-55); ALBUMIN 3.9 GM/DL (3.2-4.5); ALKALINE PHOSPHATASE 50 U/L (40-136); BILIRUBIN,TOTAL 0.6 MG/DL (0.1-1.0); BUN/CREATININE RATIO 14; CALCIUM 8.9 MG/DL (8.5-10.1); CARBON DIOXIDE 23 MMOL/L (21-32); CHLORIDE 109 MMOL/L (98-107); CREATININE SERUM 0.76 MG/DL (0.60-1.30); GFR ESTIMATED > 60; GLUCOSE 142 MG/DL (70-105); POTASSIUM 3.6 MMOL/L (3.6-5.0); SODIUM 143 MMOL/L (135-145); TOTAL PROTEIN 6.5 GM/DL (6.4-8.2)
[2019-11-16 09:44] LABS: BASOPHILS % (AUTO) 1 % (0-10); EOSINOPHILS # (AUTO) 0.1 10^3/uL (0.0-0.3); EOSINOPHILS % (AUTO) 1 % (0-10); HEMATOCRIT 41 % (35-52); HEMOGLOBIN 13.5 G/DL (11.5-16.0); LYMPHOCYTES # (AUTO) 1.2 X 10^3 (1.0-4.0); LYMPHOCYTES % (AUTO) 27 % (12-44); MEAN CORPUSCULAR HEMOGLOBIN 30 PG (25-34); MEAN CORPUSCULAR HGB CONC 33 G/DL (32-36); MEAN CORPUSCULAR VOLUME 91 FL (80-99); MEAN PLATELET VOLUME 9.3 FL (7.4-10.4); MONOCYTES % (AUTO) 21 % (0-12); NEUTROPHILS # (AUTO) 2.3 X 10^3 (1.8-7.8); NEUTROPHILS % (AUTO) 51 % (42-75); PLATELET COUNT 311 10^3/uL (130-400); RED CELL DISTRIBUTION WIDTH 15.7 % (10.0-14.5); WHITE BLOOD COUNT 4.6 10^3/uL (4.3-11.0)
[2019-11-16 10:03] LABS: ALANINE AMINOTRANSFERASE 72 U/L (0-55); ALBUMIN 4.1 GM/DL (3.2-4.5); ALKALINE PHOSPHATASE 60 U/L (40-136); BILIRUBIN,TOTAL 0.4 MG/DL (0.1-1.0); BUN/CREATININE RATIO 17; CALCIUM 9.3 MG/DL (8.5-10.1); CARBON DIOXIDE 23 MMOL/L (21-32); CHLORIDE 108 MMOL/L (98-107); CREATININE SERUM 0.72 MG/DL (0.60-1.30); GFR ESTIMATED > 60; GLUCOSE 99 MG/DL (70-105); POTASSIUM 4.2 MMOL/L (3.6-5.0); SODIUM 140 MMOL/L (135-145); TOTAL PROTEIN 7.1 GM/DL (6.4-8.2)
[2019-11-23 09:21] LABS: BASOPHILS % (AUTO) 1 % (0-10); EOSINOPHILS % (AUTO) 0 % (0-10); HEMATOCRIT 40 % (35-52); HEMOGLOBIN 12.8 G/DL (11.5-16.0); LYMPHOCYTES # (AUTO) 1.2 X 10^3 (1.0-4.0); LYMPHOCYTES % (AUTO) 23 % (12-44); MEAN CORPUSCULAR HEMOGLOBIN 30 PG (25-34); MEAN CORPUSCULAR HGB CONC 32 G/DL (32-36); MEAN CORPUSCULAR VOLUME 92 FL (80-99); MEAN PLATELET VOLUME 9.8 FL (7.4-10.4); MONOCYTES # (AUTO) 0.4 X 10^3 (0.0-1.0); MONOCYTES % (AUTO) 7 % (0-12); NEUTROPHILS # (AUTO) 3.9 X 10^3 (1.8-7.8); NEUTROPHILS % (AUTO) 70 % (42-75); PLATELET COUNT 320 10^3/uL (130-400); RED CELL DISTRIBUTION WIDTH 15.2 % (10.0-14.5); WHITE BLOOD COUNT 5.5 10^3/uL (4.3-11.0)
[2019-11-23 09:42] LABS: BUN/CREATININE RATIO 16; CALCIUM 8.9 MG/DL (8.5-10.1); CARBON DIOXIDE 22 MMOL/L (21-32); CHLORIDE 106 MMOL/L (98-107); CREATININE SERUM 0.75 MG/DL (0.60-1.30); GFR ESTIMATED > 60; GLUCOSE 177 MG/DL (70-105); POTASSIUM 3.5 MMOL/L (3.6-5.0); SODIUM 140 MMOL/L (135-145)
[2019-11-30 09:14] LABS: BASOPHILS % (AUTO) 1 % (0-10); EOSINOPHILS % (AUTO) 1 % (0-10); HEMATOCRIT 38 % (35-52); HEMOGLOBIN 12.5 G/DL (11.5-16.0); LYMPHOCYTES # (AUTO) 1.4 X 10^3 (1.0-4.0); LYMPHOCYTES % (AUTO) 37 % (12-44); MEAN CORPUSCULAR HEMOGLOBIN 30 PG (25-34); MEAN CORPUSCULAR HGB CONC 33 G/DL (32-36); MEAN CORPUSCULAR VOLUME 92 FL (80-99); MEAN PLATELET VOLUME 10.2 FL (7.4-10.4); MONOCYTES # (AUTO) 0.3 X 10^3 (0.0-1.0); MONOCYTES % (AUTO) 8 % (0-12); NEUTROPHILS % (AUTO) 54 % (42-75); PLATELET COUNT 303 10^3/uL (130-400); RED CELL DISTRIBUTION WIDTH 15.1 % (10.0-14.5); WHITE BLOOD COUNT 3.7 10^3/uL (4.3-11.0)
[2019-11-30 09:33] LABS: BUN/CREATININE RATIO 16; CALCIUM 8.1 MG/DL (8.5-10.1); CARBON DIOXIDE 20 MMOL/L (21-32); CHLORIDE 108 MMOL/L (98-107); CREATININE SERUM 0.73 MG/DL (0.60-1.30); GFR ESTIMATED > 60; GLUCOSE 144 MG/DL (70-105); POTASSIUM 3.4 MMOL/L (3.6-5.0); SODIUM 140 MMOL/L (135-145)
[2019-12-07 09:45] LABS: BASOPHILS % (AUTO) 1 % (0-10); EOSINOPHILS % (AUTO) 1 % (0-10); HEMATOCRIT 38 % (35-52); HEMOGLOBIN 12.2 G/DL (11.5-16.0); LYMPHOCYTES # (AUTO) 1.1 X 10^3 (1.0-4.0); LYMPHOCYTES % (AUTO) 33 % (12-44); MEAN CORPUSCULAR HEMOGLOBIN 30 PG (25-34); MEAN CORPUSCULAR HGB CONC 32 G/DL (32-36); MEAN CORPUSCULAR VOLUME 93 FL (80-99); MEAN PLATELET VOLUME 9.9 FL (7.4-10.4); MONOCYTES # (AUTO) 0.3 X 10^3 (0.0-1.0); MONOCYTES % (AUTO) 8 % (0-12); NEUTROPHILS # (AUTO) 1.9 X 10^3 (1.8-7.8); NEUTROPHILS % (AUTO) 57 % (42-75); PLATELET COUNT 309 10^3/uL (130-400); RED CELL DISTRIBUTION WIDTH 15.6 % (10.0-14.5); WHITE BLOOD COUNT 3.4 10^3/uL (4.3-11.0)
[2019-12-07 09:59] LABS: BUN/CREATININE RATIO 18; CALCIUM 8.4 MG/DL (8.5-10.1); CARBON DIOXIDE 19 MMOL/L (21-32); CHLORIDE 110 MMOL/L (98-107); CREATININE SERUM 0.78 MG/DL (0.60-1.30); GFR ESTIMATED > 60; GLUCOSE 154 MG/DL (70-105); POTASSIUM 3.5 MMOL/L (3.6-5.0); SODIUM 142 MMOL/L (135-145)
[2019-12-14 09:58] LABS: BASOPHILS % (AUTO) 1 % (0-10); EOSINOPHILS % (AUTO) 0 % (0-10); HEMATOCRIT 39 % (35-52); HEMOGLOBIN 12.6 G/DL (11.5-16.0); LYMPHOCYTES # (AUTO) 1.4 X 10^3 (1.0-4.0); LYMPHOCYTES % (AUTO) 29 % (12-44); MEAN CORPUSCULAR HEMOGLOBIN 29 PG (25-34); MEAN CORPUSCULAR HGB CONC 32 G/DL (32-36); MEAN CORPUSCULAR VOLUME 92 FL (80-99); MEAN PLATELET VOLUME 9.2 FL (7.4-10.4); MONOCYTES # (AUTO) 0.9 X 10^3 (0.0-1.0); MONOCYTES % (AUTO) 19 % (0-12); NEUTROPHILS # (AUTO) 2.4 X 10^3 (1.8-7.8); NEUTROPHILS % (AUTO) 51 % (42-75); PLATELET COUNT 284 10^3/uL (130-400); RED CELL DISTRIBUTION WIDTH 15.4 % (10.0-14.5); WHITE BLOOD COUNT 4.7 10^3/uL (4.3-11.0)
[2019-12-14 10:18] LABS: CHLORIDE 109 MMOL/L (98-107); POTASSIUM 3.3 MMOL/L (3.6-5.0); SODIUM 141 MMOL/L (135-145)
[2019-12-14 10:19] LABS: CALCIUM 8.5 MG/DL (8.5-10.1)
[2019-12-14 10:20] LABS: GLUCOSE 113 MG/DL (70-105)
[2019-12-14 10:21] LABS: TOTAL PROTEIN 6.7 GM/DL (6.4-8.2)
[2019-12-14 10:22] LABS: BILIRUBIN,TOTAL 0.4 MG/DL (0.1-1.0); CARBON DIOXIDE 20 MMOL/L (21-32)
[2019-12-14 10:24] LABS: ALKALINE PHOSPHATASE 45 U/L (40-136); CREATININE SERUM 0.72 MG/DL (0.60-1.30); GFR ESTIMATED > 60
[2019-12-14 10:25] LABS: BUN/CREATININE RATIO 15
[2019-12-14 10:27] LABS: ALANINE AMINOTRANSFERASE 52 U/L (0-55)
[2019-12-21 09:10] LABS: BASOPHILS % (AUTO) 1 % (0-10); EOSINOPHILS % (AUTO) 0 % (0-10); HEMATOCRIT 40 % (35-52); HEMOGLOBIN 12.8 G/DL (11.5-16.0); LYMPHOCYTES # (AUTO) 1.4 X 10^3 (1.0-4.0); LYMPHOCYTES % (AUTO) 21 % (12-44); MEAN CORPUSCULAR HEMOGLOBIN 30 PG (25-34); MEAN CORPUSCULAR HGB CONC 32 G/DL (32-36); MEAN CORPUSCULAR VOLUME 91 FL (80-99); MONOCYTES # (AUTO) 0.6 X 10^3 (0.0-1.0); MONOCYTES % (AUTO) 9 % (0-12); NEUTROPHILS # (AUTO) 4.6 X 10^3 (1.8-7.8); NEUTROPHILS % (AUTO) 69 % (42-75); PLATELET COUNT 308 10^3/uL (130-400); RED CELL DISTRIBUTION WIDTH 15.2 % (10.0-14.5); WHITE BLOOD COUNT 6.7 10^3/uL (4.3-11.0)
[2019-12-21 09:27] LABS: BUN/CREATININE RATIO 17; CALCIUM 9.5 MG/DL (8.5-10.1); CARBON DIOXIDE 22 MMOL/L (21-32); CHLORIDE 108 MMOL/L (98-107); CREATININE SERUM 0.72 MG/DL (0.60-1.30); GFR ESTIMATED > 60; GLUCOSE 138 MG/DL (70-105); POTASSIUM 3.7 MMOL/L (3.6-5.0); SODIUM 141 MMOL/L (135-145)
[~2019-12-28 08:49] MED LIST changes: -CATHETER FLUSH 10 ML SYR IV PRN; -HOLD METFORMIN - RECEIVED CONTRAST 20 ML VIAL IV SCH; -IOHEXOL 350 MG/ML 100 ML (OMNIPAQUE 350) VIAL IV ONE; -NS 100 ML (IVPB) BAG IV ONE; +NS IV 1000 ML (CANCER CTR) IV SCH; +NS IV SCH; +ONDANSETRON MDV (CANCER CENTER 16 MG, DEXAMETHASONE INJECTION 10 MG in NS (IVPB) CANCER... IV SCH; +PACLitaxel PROTEIN 160 MG in EMPTY IV BAG (PVC) CANCER CTR 1 EA IV SCH; +TRASTUZUMAB IV SCH; +ZOLEDRONIC ACID (CANCER CTR) 4 MG in NS (IVPB) CANCER CENTER 100 ML IV SCH
[2019-12-28 09:07] LABS: BASOPHILS % (AUTO) 1 % (0-10); EOSINOPHILS # (AUTO) 0.1 10^3/uL (0.0-0.3); EOSINOPHILS % (AUTO) 2 % (0-10); HEMATOCRIT 39 % (35-52); HEMOGLOBIN 12.5 G/DL (11.5-16.0); LYMPHOCYTES # (AUTO) 1.3 X 10^3 (1.0-4.0); LYMPHOCYTES % (AUTO) 31 % (12-44); MEAN CORPUSCULAR HGB CONC 32 G/DL (32-36); MEAN CORPUSCULAR VOLUME 91 FL (80-99); MEAN PLATELET VOLUME 9.9 FL (7.4-10.4); MONOCYTES # (AUTO) 0.5 X 10^3 (0.0-1.0); MONOCYTES % (AUTO) 11 % (0-12); NEUTROPHILS # (AUTO) 2.4 X 10^3 (1.8-7.8); NEUTROPHILS % (AUTO) 55 % (42-75); PLATELET COUNT 320 10^3/uL (130-400); RED CELL DISTRIBUTION WIDTH 15.4 % (10.0-14.5); WHITE BLOOD COUNT 4.3 10^3/uL (4.3-11.0)
[2019-12-28 09:11] LABS: MEAN CORPUSCULAR HEMOGLOBIN 29 PG (25-34)
[2019-12-28 09:25] LABS: BUN/CREATININE RATIO 21; CALCIUM 8.8 MG/DL (8.5-10.1); CARBON DIOXIDE 21 MMOL/L (21-32); CHLORIDE 107 MMOL/L (98-107); CREATININE SERUM 0.73 MG/DL (0.60-1.30); GFR ESTIMATED > 60; GLUCOSE 128 MG/DL (70-105); POTASSIUM 3.6 MMOL/L (3.6-5.0); SODIUM 139 MMOL/L (135-145)
[2020-01-04 09:11] LABS: BASOPHILS % (AUTO) 1 % (0-10); EOSINOPHILS % (AUTO) 0 % (0-10); HEMATOCRIT 38 % (35-52); HEMOGLOBIN 12.3 G/DL (11.5-16.0); LYMPHOCYTES # (AUTO) 1.1 X 10^3 (1.0-4.0); LYMPHOCYTES % (AUTO) 33 % (12-44); MEAN CORPUSCULAR HEMOGLOBIN 30 PG (25-34); MEAN CORPUSCULAR HGB CONC 33 G/DL (32-36); MEAN CORPUSCULAR VOLUME 92 FL (80-99); MEAN PLATELET VOLUME 9.9 FL (7.4-10.4); MONOCYTES # (AUTO) 0.3 X 10^3 (0.0-1.0); MONOCYTES % (AUTO) 9 % (0-12); NEUTROPHILS % (AUTO) 58 % (42-75); PLATELET COUNT 334 10^3/uL (130-400); RED CELL DISTRIBUTION WIDTH 15.6 % (10.0-14.5); WHITE BLOOD COUNT 3.4 10^3/uL (4.3-11.0)
[2020-01-04 09:30] LABS: ALANINE AMINOTRANSFERASE 60 U/L (0-55); ALBUMIN 3.8 GM/DL (3.2-4.5); ALKALINE PHOSPHATASE 43 U/L (40-136); BILIRUBIN,TOTAL 0.5 MG/DL (0.1-1.0); BUN/CREATININE RATIO 15; CALCIUM 8.8 MG/DL (8.5-10.1); CARBON DIOXIDE 21 MMOL/L (21-32); CHLORIDE 108 MMOL/L (98-107); CREATININE SERUM 0.73 MG/DL (0.60-1.30); GFR ESTIMATED > 60; GLUCOSE 154 MG/DL (70-105); POTASSIUM 3.4 MMOL/L (3.6-5.0); SODIUM 140 MMOL/L (135-145); TOTAL PROTEIN 6.5 GM/DL (6.4-8.2)
== END 2020-01-03 | disposition home or self-care (01) ==
LOC: ONC 08:49
PROVIDERS: ATTEND Internal Medicine Hematology & Oncology
DX: Z51.11 Encounter for antineoplastic chemotherapy (principal); C50.212 Malignant neoplasm of upper-inner quadrant of left female breast; C79.51 Secondary malignant neoplasm of bone; C77.3 Secondary and unspecified malignant neoplasm of axilla and upper limb lymph nodes
CPT/HCPCS: 36591; 80048; 80053; 85025; 96365; 96367; 96375; 96413; 96417

== ENCOUNTER → 2020-01-03 | Outpatient (CLI) | payer MEDICARE, OTHER ==
[~2020-01-03] MED LIST changes: +CATHETER FLUSH 10 ML SYR IV PRN; +HEParin (CENTRAL IV FLUSH) 500 UNIT/5 ML SYR ONE; -NS IV 1000 ML (CANCER CTR) IV SCH; -NS IV SCH; -ONDANSETRON MDV (CANCER CENTER 16 MG, DEXAMETHASONE INJECTION 10 MG in NS (IVPB) CANCER... IV SCH; -PACLitaxel PROTEIN 160 MG in EMPTY IV BAG (PVC) CANCER CTR 1 EA IV SCH; -TRASTUZUMAB IV SCH; -ZOLEDRONIC ACID (CANCER CTR) 4 MG in NS (IVPB) CANCER CENTER 100 ML IV SCH
--- NOTE | 2020-01-03 09:47 | Diagnostic Imaging Report ---
INDICATION: Breast carcinoma. TECHNIQUE/FINDINGS: The Patient was administered 32.9 mCi of technetium 99m pertechnetate labeled to the red blood cells and gated imaging over the chest was performed. The left ventricular ejection fraction is 61%. No definite wall motion abnormality is identified. IMPRESSION: Normal left ventricular ejection fraction of 61%. Dictated by: Dictated on workstation # [id number]
== END ==
LOC: CARD 08:39
PROVIDERS: ATTEND Nurse Practitioner Adult Health
DX: C77.3 Secondary and unspecified malignant neoplasm of axilla and upper limb lymph nodes (principal); C79.51 Secondary malignant neoplasm of bone; C50.412 Malignant neoplasm of upper-outer quadrant of left female breast
CPT/HCPCS: 78472

== ENCOUNTER → 2020-01-07 | Outpatient (CLI) | payer MEDICARE, OTHER ==
[~2020-01-07] MED LIST changes: -HEParin (CENTRAL IV FLUSH) 500 UNIT/5 ML SYR ONE; +HOLD METFORMIN - RECEIVED CONTRAST 20 ML VIAL IV SCH; +IOHEXOL 350 MG/ML 100 ML (OMNIPAQUE 350) VIAL IV ONE; +NS 100 ML (IVPB) BAG IV ONE
--- NOTE | 2020-01-07 10:54 | Diagnostic Imaging Report ---
PROCEDURE: CT chest and abdomen with contrast. TECHNIQUE: Multiple contiguous axial images were obtained through the chest and abdomen after the administration of intravenous contrast. Auto Exposure Controls were utilized during the CT exam to meet ALARA standards for radiation dose reduction. INDICATION: Breast carcinoma, follow up. COMPARISON: Correlation is made with prior CT from 10/14/2019. FINDINGS: CT CHEST: A right chest wall port has tip within the SVC. Hyperdense mass in the upper right breast measures 17 mm x 10 mm compared with 16 mm x 10 mm on prior. A left breast mass measures approximately 5.4 x 2.0 cm compared with 4.9 x 1.8 cm. This again appears to involve the left pectoralis musculature. No definite axillary lymphadenopathy is seen. No internal mammary lymphadenopathy is detected. No mediastinal or hilar lymphadenopathy is seen. There is no pericardial or pleural fluid identified. No pulmonary parenchymal mass is seen. There are areas of linear density in the lingula as well as the right and left upper lobes, consistent with scarring or atelectasis. Sclerotic lesion involving upper thoracic vertebral body appears stable. IMPRESSION: Overall fairly stable appearance of the chest since study from 10/14/2019. Left breast mass is similar to perhaps minimally larger when compared with prior. No definite thoracic lymphadenopathy is seen. There is no evidence of pulmonary metastatic disease. CT ABDOMEN: Liver again demonstrates generalized low density, consistent with hepatic steatosis. No mass is seen. Gallbladder is unremarkable. No biliary ductal dilatation is identified. The pancreas and spleen are unremarkable. The adrenal glands and kidneys are unremarkable. No masses are seen. Aorta is normal in caliber. No central retroperitoneal or mesenteric lymphadenopathy is detected. The bowel loops are normal in caliber. There is no ascites. No definite osteolytic or osteosclerotic lesions are seen. IMPRESSION: 1. Hepatic steatosis. 2. Continued stable CT abdomen since exam from 10/14/2019. No lymphadenopathy or metastatic disease is detected. Dictated by: Dictated on workstation # [id number]
--- NOTE | 2020-01-07 14:26 | Diagnostic Imaging Report ---
INDICATION: Breast carcinoma. Patient was administered 27.2 mCi technetium 99m MDP intravenously and whole-body imaging was performed after 3 hour delay. Correlation is made with prior whole body bone scan from 10/14/2019. Normal uptake of activity by the axial and appendicular skeleton is noted. Uptake by the kidneys with excretion into urinary bladder is noted. The mild uptake of upper thoracic spine approximately level of T5 is stable. Small focus left iliac bone is stable. No new areas of tracer uptake is seen apart from some uptake in the region of the left maxilla. This may be odontogenic in nature. IMPRESSION: 1. Stable uptake involving the upper thoracic spine and left iliac bone. No new areas of tracer accumulation are seen apart from a small focus in the left maxilla, likely dental in origin. Dictated by: Dictated on workstation # [id number]
== END ==
LOC: CARD 09:35
PROVIDERS: ATTEND Nurse Practitioner Adult Health
DX: C50.812 Malignant neoplasm of overlapping sites of left female breast (principal); C79.51 Secondary malignant neoplasm of bone; K76.0 Fatty (change of) liver, not elsewhere classified
CPT/HCPCS: 71260; 74160; 78306

== ENCOUNTER → 2020-03-27 | Outpatient (CLI) | payer MEDICARE, OTHER ==
--- NOTE | 2020-03-27 11:04 | Diagnostic Imaging Report ---
PROCEDURE: CT chest with contrast, CT abdomen with and without contrast. TECHNIQUE: Precontrast acquisitions were acquired through the abdomen. Multiple contiguous axial images were obtained through the chest and abdomen after administration of intravenous contrast. Auto Exposure Controls were utilized during the CT exam to meet ALARA standards for radiation dose reduction. INDICATION: Breast cancer with bone metastases. COMPARISON: Correlation is made with prior CT from 01/07/2020. FINDINGS: CT CHEST: A right chest wall port is again noted. Hyperdense mass in the right breast previously described measures 7 mm x 14 mm compared with 10 mm x 17 mm. The left breast mass, inseparable from the left pectus musculature, is somewhat difficult to measure but measures approximately 5.7 x 1.8 cm compared with 5.4 x 2.0 cm. No new breast mass is detected. No axillary lymphadenopathy is seen. No internal mammary lymphadenopathy is detected. No mediastinal or hilar lymphadenopathy is detected. There is no pericardial or pleural fluid identified. There appears to some atelectasis or scarring in the lingula as well as the right upper lobe. No discrete parenchymal mass is identified. A sclerotic lesion in upper thoracic vertebral body and additional smaller foci in lower thoracic spine and upper lumbar spine are noted which appear similar. IMPRESSION: Stable CT of the chest since 01/07/2020. Left breast mass is similar. No thoracic lymphadenopathy or evidence of pulmonary metastatic disease is seen. Osteoblastic lesions appear to be stable. CT ABDOMEN: Liver and gallbladder are unremarkable apart from hepatic steatosis. No liver mass or biliary ductal dilatation is seen. The pancreas and spleen are unremarkable. No adrenal mass is detected. Kidneys are stable. Aorta is nonaneurysmal. No central retroperitoneal or mesenteric lymphadenopathy is seen. Small sclerotic foci in the upper lumbar spine are stable. IMPRESSION: Stable CT abdomen since 01/07/2020. There is hepatic steatosis. No abdominal lymphadenopathy or evidence of metastatic disease is seen. Tiny osteosclerotic lesion in the upper lumbar spine is stable. Dictated by: Dictated on workstation # [id number]
--- NOTE | 2020-03-27 14:17 | Diagnostic Imaging Report ---
RADIOPHARMACEUTICAL: 27.0 mCi Tc-99m -MDP IV. INDICATION: Breast cancer, osseous metastatic disease. COMPARISON: 01/07/2020 and 10/14/2019. TECHNIQUE: Anterior and posterior whole body images. FINDINGS: Focal activity overlying the nasal cavity and left maxillary sinus region is again identified, appearing similar to the prior examination. Focal activity within the upper thoracic spine is again identified, stable from the prior exam. Mild focal activity involving the left iliac bone is again noted, appearing similar to the prior exam. No new focal radiotracer activity. Degenerative changes within the bilateral shoulders, knees, and ankles. The bilateral kidneys are visualized. IMPRESSION: 1. Stable examination demonstrating focal activity within the upper thoracic spine, left iliac bone, and involving the left nasal cavity and maxilla. 2. No evidence of new osseous metastatic disease. Dictated by: Dictated on workstation # [id number]
== END ==
LOC: CARD 09:27
PROVIDERS: ATTEND Internal Medicine Hematology & Oncology
DX: Z51.81 Encounter for therapeutic drug level monitoring (principal); K76.0 Fatty (change of) liver, not elsewhere classified; C50.812 Malignant neoplasm of overlapping sites of left female breast; C79.51 Secondary malignant neoplasm of bone
CPT/HCPCS: 71260; 74170; 78306; 93306; A9503

== ENCOUNTER 2020-03-28 08:47 | Outpatient (RCR) | payer MEDICARE, OTHER ==
[2020-01-04 09:11] LABS: BASOPHILS % (AUTO) 1 % (0-10); EOSINOPHILS % (AUTO) 0 % (0-10); HEMATOCRIT 38 % (35-52); HEMOGLOBIN 12.3 G/DL (11.5-16.0); LYMPHOCYTES # (AUTO) 1.1 X 10^3 (1.0-4.0); LYMPHOCYTES % (AUTO) 33 % (12-44); MEAN CORPUSCULAR HEMOGLOBIN 30 PG (25-34); MEAN CORPUSCULAR HGB CONC 33 G/DL (32-36); MEAN CORPUSCULAR VOLUME 92 FL (80-99); MEAN PLATELET VOLUME 9.9 FL (7.4-10.4); MONOCYTES # (AUTO) 0.3 X 10^3 (0.0-1.0); MONOCYTES % (AUTO) 9 % (0-12); NEUTROPHILS % (AUTO) 58 % (42-75); PLATELET COUNT 334 10^3/uL (130-400); RED CELL DISTRIBUTION WIDTH 15.6 % (10.0-14.5); WHITE BLOOD COUNT 3.4 10^3/uL (4.3-11.0)
[2020-01-04 09:30] LABS: ALANINE AMINOTRANSFERASE 60 U/L (0-55); ALBUMIN 3.8 GM/DL (3.2-4.5); ALKALINE PHOSPHATASE 43 U/L (40-136); BILIRUBIN,TOTAL 0.5 MG/DL (0.1-1.0); BUN/CREATININE RATIO 15; CALCIUM 8.8 MG/DL (8.5-10.1); CARBON DIOXIDE 21 MMOL/L (21-32); CHLORIDE 108 MMOL/L (98-107); CREATININE SERUM 0.73 MG/DL (0.60-1.30); GFR ESTIMATED > 60; GLUCOSE 154 MG/DL (70-105); POTASSIUM 3.4 MMOL/L (3.6-5.0); SODIUM 140 MMOL/L (135-145); TOTAL PROTEIN 6.5 GM/DL (6.4-8.2)
[2020-01-10 09:31] LABS: BASOPHILS % (AUTO) 1 % (0-10); EOSINOPHILS # (AUTO) 0.1 10^3/uL (0.0-0.3); EOSINOPHILS % (AUTO) 2 % (0-10); HEMATOCRIT 38 % (35-52); HEMOGLOBIN 12.4 G/DL (11.5-16.0); LYMPHOCYTES # (AUTO) 1.3 X 10^3 (1.0-4.0); LYMPHOCYTES % (AUTO) 29 % (12-44); MEAN CORPUSCULAR HEMOGLOBIN 30 PG (25-34); MEAN CORPUSCULAR HGB CONC 32 G/DL (32-36); MEAN CORPUSCULAR VOLUME 91 FL (80-99); MEAN PLATELET VOLUME 9.1 FL (7.4-10.4); MONOCYTES # (AUTO) 0.9 X 10^3 (0.0-1.0); MONOCYTES % (AUTO) 20 % (0-12); NEUTROPHILS # (AUTO) 2.1 X 10^3 (1.8-7.8); NEUTROPHILS % (AUTO) 48 % (42-75); PLATELET COUNT 326 10^3/uL (130-400); RED CELL DISTRIBUTION WIDTH 15.9 % (10.0-14.5); WHITE BLOOD COUNT 4.4 10^3/uL (4.3-11.0)
[2020-01-10 09:48] LABS: ALANINE AMINOTRANSFERASE 47 U/L (0-55); ALBUMIN 3.8 GM/DL (3.2-4.5); ALKALINE PHOSPHATASE 45 U/L (40-136); BILIRUBIN,TOTAL 0.3 MG/DL (0.1-1.0); BUN/CREATININE RATIO 15; CALCIUM 8.1 MG/DL (8.5-10.1); CARBON DIOXIDE 23 MMOL/L (21-32); CHLORIDE 108 MMOL/L (98-107); CREATININE SERUM 0.65 MG/DL (0.60-1.30); GFR ESTIMATED > 60; GLUCOSE 106 MG/DL (70-105); POTASSIUM 3.3 MMOL/L (3.6-5.0); SODIUM 140 MMOL/L (135-145); TOTAL PROTEIN 6.5 GM/DL (6.4-8.2)
[2020-02-08 09:15] LABS: BASOPHILS % (AUTO) 0 % (0-10); EOSINOPHILS % (AUTO) 0 % (0-10); HEMATOCRIT 41 % (35-52); HEMOGLOBIN 13.5 G/DL (11.5-16.0); LYMPHOCYTES # (AUTO) 1.4 X 10^3 (1.0-4.0); LYMPHOCYTES % (AUTO) 29 % (12-44); MEAN CORPUSCULAR HEMOGLOBIN 30 PG (25-34); MEAN CORPUSCULAR HGB CONC 33 G/DL (32-36); MEAN CORPUSCULAR VOLUME 90 FL (80-99); MEAN PLATELET VOLUME 9.6 FL (7.4-10.4); MONOCYTES # (AUTO) 0.6 X 10^3 (0.0-1.0); MONOCYTES % (AUTO) 11 % (0-12); NEUTROPHILS # (AUTO) 2.9 X 10^3 (1.8-7.8); NEUTROPHILS % (AUTO) 59 % (42-75); PLATELET COUNT 294 10^3/uL (130-400); RED CELL DISTRIBUTION WIDTH 14.8 % (10.0-14.5); WHITE BLOOD COUNT 4.9 10^3/uL (4.3-11.0)
[2020-02-08 09:37] LABS: ALANINE AMINOTRANSFERASE 54 U/L (0-55); ALBUMIN 3.9 GM/DL (3.2-4.5); ALKALINE PHOSPHATASE 51 U/L (40-136); BILIRUBIN,TOTAL 0.4 MG/DL (0.1-1.0); BUN/CREATININE RATIO 18; CALCIUM 9.3 MG/DL (8.5-10.1); CARBON DIOXIDE 23 MMOL/L (21-32); CHLORIDE 107 MMOL/L (98-107); CREATININE SERUM 0.72 MG/DL (0.60-1.30); GFR ESTIMATED > 60; GLUCOSE 138 MG/DL (70-105); POTASSIUM 3.8 MMOL/L (3.6-5.0); SODIUM 140 MMOL/L (135-145); TOTAL PROTEIN 7.3 GM/DL (6.4-8.2)
[2020-03-07 09:32] LABS: BASOPHILS % (AUTO) 0 % (0-10); EOSINOPHILS # (AUTO) 0.1 10^3/uL (0.0-0.3); EOSINOPHILS % (AUTO) 2 % (0-10); HEMATOCRIT 40 % (35-52); HEMOGLOBIN 13.1 G/DL (11.5-16.0); LYMPHOCYTES # (AUTO) 1.4 X 10^3 (1.0-4.0); LYMPHOCYTES % (AUTO) 30 % (12-44); MEAN CORPUSCULAR HEMOGLOBIN 29 PG (25-34); MEAN CORPUSCULAR HGB CONC 33 G/DL (32-36); MEAN CORPUSCULAR VOLUME 89 FL (80-99); MEAN PLATELET VOLUME 9.4 FL (7.4-10.4); MONOCYTES # (AUTO) 0.6 X 10^3 (0.0-1.0); MONOCYTES % (AUTO) 14 % (0-12); NEUTROPHILS # (AUTO) 2.5 X 10^3 (1.8-7.8); NEUTROPHILS % (AUTO) 54 % (42-75); PLATELET COUNT 255 10^3/uL (130-400); RED CELL DISTRIBUTION WIDTH 14.4 % (10.0-14.5); WHITE BLOOD COUNT 4.6 10^3/uL (4.3-11.0)
[2020-03-07 10:05] LABS: ALANINE AMINOTRANSFERASE 43 U/L (0-55); ALBUMIN 3.9 GM/DL (3.2-4.5); ALKALINE PHOSPHATASE 51 U/L (40-136); BILIRUBIN,TOTAL 0.3 MG/DL (0.1-1.0); BUN/CREATININE RATIO 16; CALCIUM 9.1 MG/DL (8.5-10.1); CARBON DIOXIDE 24 MMOL/L (21-32); CHLORIDE 107 MMOL/L (98-107); CREATININE SERUM 0.75 MG/DL (0.60-1.30); GFR ESTIMATED > 60; GLUCOSE 119 MG/DL (70-105); POTASSIUM 3.8 MMOL/L (3.6-5.0); SODIUM 140 MMOL/L (135-145); TOTAL PROTEIN 7.1 GM/DL (6.4-8.2)
[~2020-03-28 08:47] MED LIST changes: +ALTEPLASE 2 MG (CATHFLO) CANCER CENTER IV ONE; -CATHETER FLUSH 10 ML SYR IV PRN; -HOLD METFORMIN - RECEIVED CONTRAST 20 ML VIAL IV SCH; -IOHEXOL 350 MG/ML 100 ML (OMNIPAQUE 350) VIAL IV ONE; -NS 100 ML (IVPB) BAG IV ONE; +NS IV 1000 ML (CANCER CTR) IV SCH; +NS IV SCH; +ONDANSETRON MDV (CANCER CENTER 16 MG, DEXAMETHASONE INJECTION 10 MG in NS (IVPB) CANCER... IV SCH; +PACLitaxel PROTEIN 160 MG in EMPTY IV BAG (PVC) CANCER CTR 1 EA IV SCH; +TRASTUZUMAB IV SCH; +ZOLEDRONIC ACID (CANCER CTR) 4 MG in NS (IVPB) CANCER CENTER 100 ML IV SCH
== END 2020-04-03 | disposition home or self-care (01) ==
LOC: ONC 08:47
PROVIDERS: ATTEND Internal Medicine Hematology & Oncology
DX: Z51.11 Encounter for antineoplastic chemotherapy (principal); C50.412 Malignant neoplasm of upper-outer quadrant of left female breast; C79.51 Secondary malignant neoplasm of bone; C77.3 Secondary and unspecified malignant neoplasm of axilla and upper limb lymph nodes
CPT/HCPCS: 36591; 36593; 80053; 82306; 85025; 96367; 96413

== ENCOUNTER 2020-06-27 08:52 | Outpatient (RCR) | payer MEDICARE, OTHER ==
[2020-04-04 08:57] LABS: BASOPHILS % (AUTO) 0 % (0-10); EOSINOPHILS # (AUTO) 0.1 10^3/uL (0.0-0.3); EOSINOPHILS % (AUTO) 2 % (0-10); HEMATOCRIT 42 % (35-52); HEMOGLOBIN 13.6 G/DL (11.5-16.0); LYMPHOCYTES # (AUTO) 1.4 X 10^3 (1.0-4.0); LYMPHOCYTES % (AUTO) 26 % (12-44); MEAN CORPUSCULAR HEMOGLOBIN 29 PG (25-34); MEAN CORPUSCULAR HGB CONC 32 G/DL (32-36); MEAN CORPUSCULAR VOLUME 88 FL (80-99); MEAN PLATELET VOLUME 9.8 FL (7.4-10.4); MONOCYTES # (AUTO) 0.6 X 10^3 (0.0-1.0); MONOCYTES % (AUTO) 10 % (0-12); NEUTROPHILS # (AUTO) 3.3 X 10^3 (1.8-7.8); NEUTROPHILS % (AUTO) 61 % (42-75); PLATELET COUNT 275 10^3/uL (130-400); WHITE BLOOD COUNT 5.3 10^3/uL (4.3-11.0)
[2020-04-04 09:17] LABS: ALANINE AMINOTRANSFERASE 41 U/L (0-55); ALBUMIN 3.9 GM/DL (3.2-4.5); ALKALINE PHOSPHATASE 53 U/L (40-136); BILIRUBIN,TOTAL 0.5 MG/DL (0.1-1.0); BUN/CREATININE RATIO 23; CALCIUM 9.2 MG/DL (8.5-10.1); CARBON DIOXIDE 23 MMOL/L (21-32); CHLORIDE 107 MMOL/L (98-107); CREATININE SERUM 0.77 MG/DL (0.60-1.30); GFR ESTIMATED > 60; GLUCOSE 135 MG/DL (70-105); POTASSIUM 3.8 MMOL/L (3.6-5.0); SODIUM 140 MMOL/L (135-145); TOTAL PROTEIN 7.1 GM/DL (6.4-8.2)
[2020-04-25 10:32] LABS: BASOPHILS % (AUTO) 0 % (0-10); EOSINOPHILS # (AUTO) 0.1 10^3/uL (0.0-0.3); EOSINOPHILS % (AUTO) 3 % (0-10); HEMATOCRIT 43 % (35-52); HEMOGLOBIN 14.1 G/DL (11.5-16.0); LYMPHOCYTES # (AUTO) 1.5 X 10^3 (1.0-4.0); LYMPHOCYTES % (AUTO) 26 % (12-44); MEAN CORPUSCULAR HEMOGLOBIN 29 PG (25-34); MEAN CORPUSCULAR HGB CONC 33 G/DL (32-36); MEAN CORPUSCULAR VOLUME 87 FL (80-99); MEAN PLATELET VOLUME 9.5 FL (7.4-10.4); MONOCYTES # (AUTO) 0.7 X 10^3 (0.0-1.0); MONOCYTES % (AUTO) 12 % (0-12); NEUTROPHILS # (AUTO) 3.4 X 10^3 (1.8-7.8); NEUTROPHILS % (AUTO) 59 % (42-75); PLATELET COUNT 269 10^3/uL (130-400); WHITE BLOOD COUNT 5.7 10^3/uL (4.3-11.0)
[2020-04-25 10:54] LABS: ALANINE AMINOTRANSFERASE 51 U/L (0-55); ALBUMIN 4.1 GM/DL (3.2-4.5); ALKALINE PHOSPHATASE 54 U/L (40-136); BILIRUBIN,TOTAL 0.4 MG/DL (0.1-1.0); BUN/CREATININE RATIO 21; CALCIUM 9.6 MG/DL (8.5-10.1); CARBON DIOXIDE 26 MMOL/L (21-32); CHLORIDE 104 MMOL/L (98-107); CREATININE SERUM 0.72 MG/DL (0.60-1.30); GFR ESTIMATED > 60; GLUCOSE 99 MG/DL (70-105); POTASSIUM 4.2 MMOL/L (3.6-5.0); SODIUM 139 MMOL/L (135-145); TOTAL PROTEIN 7.5 GM/DL (6.4-8.2)
[2020-05-16 11:02] LABS: BASOPHILS % (AUTO) 0 % (0-10); EOSINOPHILS # (AUTO) 0.1 10^3/uL (0.0-0.3); EOSINOPHILS % (AUTO) 2 % (0-10); HEMATOCRIT 42 % (35-52); HEMOGLOBIN 13.9 G/DL (11.5-16.0); LYMPHOCYTES # (AUTO) 1.4 X 10^3 (1.0-4.0); LYMPHOCYTES % (AUTO) 23 % (12-44); MEAN CORPUSCULAR HEMOGLOBIN 29 PG (25-34); MEAN CORPUSCULAR HGB CONC 33 G/DL (32-36); MEAN CORPUSCULAR VOLUME 87 FL (80-99); MEAN PLATELET VOLUME 9.1 FL (7.4-10.4); MONOCYTES # (AUTO) 0.7 X 10^3 (0.0-1.0); MONOCYTES % (AUTO) 11 % (0-12); NEUTROPHILS # (AUTO) 4.1 X 10^3 (1.8-7.8); NEUTROPHILS % (AUTO) 64 % (42-75); PLATELET COUNT 277 10^3/uL (130-400); WHITE BLOOD COUNT 6.4 10^3/uL (4.3-11.0)
[2020-05-16 11:24] LABS: ALANINE AMINOTRANSFERASE 39 U/L (0-55); ALKALINE PHOSPHATASE 61 U/L (40-136); BILIRUBIN,TOTAL 0.4 MG/DL (0.1-1.0); BUN/CREATININE RATIO 19; CALCIUM 8.9 MG/DL (8.5-10.1); CARBON DIOXIDE 24 MMOL/L (21-32); CHLORIDE 104 MMOL/L (98-107); CREATININE SERUM 0.73 MG/DL (0.60-1.30); GFR ESTIMATED > 60; GLUCOSE 100 MG/DL (70-105); SODIUM 137 MMOL/L (135-145); TOTAL PROTEIN 7.5 GM/DL (6.4-8.2)
[2020-06-06 10:13] LABS: BASOPHILS % (AUTO) 1 % (0-10); EOSINOPHILS # (AUTO) 0.1 10^3/uL (0.0-0.3); EOSINOPHILS % (AUTO) 1 % (0-10); HEMATOCRIT 42 % (35-52); HEMOGLOBIN 13.6 g/dL (11.5-16.0); LYMPHOCYTES # (AUTO) 1.2 10^3/uL (1.0-4.0); LYMPHOCYTES % (AUTO) 23 % (12-44); MEAN CORPUSCULAR HEMOGLOBIN 29 pg (25-34); MEAN CORPUSCULAR HGB CONC 32 g/dL (32-36); MEAN CORPUSCULAR VOLUME 89 fL (80-99); MEAN PLATELET VOLUME 9.5 fL (9.0-12.2); MONOCYTES # (AUTO) 0.6 10^3/uL (0.0-1.0); MONOCYTES % (AUTO) 11 % (0-12); NEUTROPHILS # (AUTO) 3.5 10^3/uL (1.8-7.8); NEUTROPHILS % (AUTO) 64 % (42-75); PLATELET COUNT 258 10^3/uL (130-400); WHITE BLOOD COUNT 5.4 10^3/uL (4.3-11.0)
[2020-06-06 10:35] LABS: ALANINE AMINOTRANSFERASE 33 U/L (0-55); ALBUMIN 3.9 GM/DL (3.2-4.5); ALKALINE PHOSPHATASE 56 U/L (40-136); BILIRUBIN,TOTAL 0.5 MG/DL (0.1-1.0); BUN/CREATININE RATIO 18; CALCIUM 8.9 MG/DL (8.5-10.1); CARBON DIOXIDE 23 MMOL/L (21-32); CHLORIDE 104 MMOL/L (98-107); CREATININE SERUM 0.77 MG/DL (0.60-1.30); GFR ESTIMATED > 60; GLUCOSE 124 MG/DL (70-105); POTASSIUM 3.9 MMOL/L (3.6-5.0); SODIUM 139 MMOL/L (135-145); TOTAL PROTEIN 7.3 GM/DL (6.4-8.2)
[~2020-06-27 08:52] MED LIST changes: -ALTEPLASE 2 MG (CATHFLO) CANCER CENTER IV ONE; -ONDANSETRON MDV (CANCER CENTER 16 MG, DEXAMETHASONE INJECTION 10 MG in NS (IVPB) CANCER... IV SCH; -PACLitaxel PROTEIN 160 MG in EMPTY IV BAG (PVC) CANCER CTR 1 EA IV SCH; +TRASTUZUMAB ANNS IV SCH
== END 2020-07-03 | disposition home or self-care (01) ==
LOC: ONC 08:52
PROVIDERS: ATTEND Internal Medicine Hematology & Oncology
DX: Z51.11 Encounter for antineoplastic chemotherapy (principal); C50.412 Malignant neoplasm of upper-outer quadrant of left female breast; C79.51 Secondary malignant neoplasm of bone; C77.3 Secondary and unspecified malignant neoplasm of axilla and upper limb lymph nodes
CPT/HCPCS: 80053; 85025; 96367; 96413; G0463; 36591; 86300

== ENCOUNTER 2020-08-29 09:36 | Outpatient (RCR) | payer MEDICARE, OTHER ==
[2020-07-18 10:03] LABS: BASOPHILS % (AUTO) 0 % (0-10); EOSINOPHILS # (AUTO) 0.1 10^3/uL (0.0-0.3); EOSINOPHILS % (AUTO) 1 % (0-10); HEMATOCRIT 42 % (35-52); HEMOGLOBIN 13.4 g/dL (11.5-16.0); LYMPHOCYTES # (AUTO) 1.3 10^3/uL (1.0-4.0); LYMPHOCYTES % (AUTO) 18 % (12-44); MEAN CORPUSCULAR HEMOGLOBIN 29 pg (25-34); MEAN CORPUSCULAR HGB CONC 32 g/dL (32-36); MEAN CORPUSCULAR VOLUME 89 fL (80-99); MEAN PLATELET VOLUME 9.6 fL (9.0-12.2); MONOCYTES # (AUTO) 0.7 10^3/uL (0.0-1.0); MONOCYTES % (AUTO) 10 % (0-12); NEUTROPHILS # (AUTO) 5.4 10^3/uL (1.8-7.8); NEUTROPHILS % (AUTO) 71 % (42-75); PLATELET COUNT 259 10^3/uL (130-400); WHITE BLOOD COUNT 7.5 10^3/uL (4.3-11.0)
[2020-07-18 10:21] LABS: ALANINE AMINOTRANSFERASE 31 U/L (0-55); ALBUMIN 4.1 GM/DL (3.2-4.5); ALKALINE PHOSPHATASE 55 U/L (40-136); BILIRUBIN,TOTAL 0.4 MG/DL (0.1-1.0); BUN/CREATININE RATIO 15; CALCIUM 9.1 MG/DL (8.5-10.1); CARBON DIOXIDE 24 MMOL/L (21-32); CHLORIDE 105 MMOL/L (98-107); CREATININE SERUM 0.73 MG/DL (0.60-1.30); GFR ESTIMATED > 60; GLUCOSE 100 MG/DL (70-105); POTASSIUM 3.8 MMOL/L (3.6-5.0); SODIUM 139 MMOL/L (135-145); TOTAL PROTEIN 7.5 GM/DL (6.4-8.2)
[~2020-08-29 09:36] MED LIST changes: -TRASTUZUMAB IV SCH
[2020-08-29 09:56] LABS: BASOPHILS % (AUTO) 0 % (0-10); EOSINOPHILS # (AUTO) 0.1 10^3/uL (0.0-0.3); EOSINOPHILS % (AUTO) 1 % (0-10); HEMATOCRIT 42 % (35-52); HEMOGLOBIN 13.5 g/dL (11.5-16.0); LYMPHOCYTES # (AUTO) 1.6 10^3/uL (1.0-4.0); LYMPHOCYTES % (AUTO) 26 % (12-44); MEAN CORPUSCULAR HEMOGLOBIN 29 pg (25-34); MEAN CORPUSCULAR HGB CONC 32 g/dL (32-36); MEAN CORPUSCULAR VOLUME 90 fL (80-99); MEAN PLATELET VOLUME 9.3 fL (9.0-12.2); MONOCYTES # (AUTO) 0.6 10^3/uL (0.0-1.0); MONOCYTES % (AUTO) 10 % (0-12); NEUTROPHILS # (AUTO) 3.8 10^3/uL (1.8-7.8); NEUTROPHILS % (AUTO) 63 % (42-75); PLATELET COUNT 260 10^3/uL (130-400); WHITE BLOOD COUNT 6.1 10^3/uL (4.3-11.0)
[2020-08-29 10:19] LABS: ALANINE AMINOTRANSFERASE 32 U/L (0-55); ALKALINE PHOSPHATASE 61 U/L (40-136); BILIRUBIN,TOTAL 0.4 MG/DL (0.1-1.0); BUN/CREATININE RATIO 16; CALCIUM 8.3 MG/DL (8.5-10.1); CARBON DIOXIDE 24 MMOL/L (21-32); CHLORIDE 107 MMOL/L (98-107); CREATININE SERUM 0.68 MG/DL (0.60-1.30); GFR ESTIMATED > 60; GLUCOSE 99 MG/DL (70-105); POTASSIUM 3.7 MMOL/L (3.6-5.0); SODIUM 140 MMOL/L (135-145); TOTAL PROTEIN 7.5 GM/DL (6.4-8.2)
== END 2020-09-13 12:10 | disposition home or self-care (01) ==
LOC: ONC 09:36
PROVIDERS: ATTEND Internal Medicine Hematology & Oncology
DX: Z51.11 Encounter for antineoplastic chemotherapy (principal); C50.412 Malignant neoplasm of upper-outer quadrant of left female breast; C79.51 Secondary malignant neoplasm of bone; C77.3 Secondary and unspecified malignant neoplasm of axilla and upper limb lymph nodes; Z17.0 Estrogen receptor positive status [ER+]; Z79.899 Other long term (current) drug therapy
CPT/HCPCS: 80053; 85025; 86300; 96413; G0463; 36591; 93005

== ENCOUNTER → 2020-10-03 | Outpatient (CLI) | payer MEDICARE, OTHER ==
[~2020-10-03] MED LIST changes: +CATHETER FLUSH 10 ML SYR IV PRN; +HOLD METFORMIN - RECEIVED CONTRAST 20 ML VIAL IV SCH; +IOHEXOL 350 MG/ML 100 ML (OMNIPAQUE 350) VIAL IV ONE; +NS 100 ML (IVPB) BAG IV ONE; -NS IV 1000 ML (CANCER CTR) IV SCH; -NS IV SCH; -TRASTUZUMAB ANNS IV SCH; -ZOLEDRONIC ACID (CANCER CTR) 4 MG in NS (IVPB) CANCER CENTER 100 ML IV SCH
--- NOTE | 2020-10-03 12:46 | Diagnostic Imaging Report ---
EXAMINATION: CT chest with contrast, CT abdomen with and without contrast. TECHNIQUE: Precontrast acquisitions were acquired through the abdomen. Multiple contiguous axial images were obtained through the chest and abdomen after administration of intravenous contrast. All CT scans use one or more of the following dose optimizing techniques: automated exposure control, MA and/or KvP adjustment based on a patient size and exam type, or iterative reconstruction. HISTORY: Breast cancer. COMPARISON: CT chest and abdomen 03/27/2020. FINDINGS: Thyroid: The thyroid is normal. Mediastinum: Heart size is mildly enlarged without significant pericardial effusion. Calcifications of the aorta and coronary vessels. Thoracic aorta is normal in caliber. Right-sided port catheter is unchanged. Lungs and airways: The lungs are clear without consolidation, pleural effusion, or pneumothorax. No new suspicious pulmonary lesion. Scattered areas of linear scarring or atelectasis. The airways are normal. Solid organs: Diffuse hypoattenuation of the liver compatible with hepatic steatosis. No suspicious hepatic lesion. There is no biliary ductal dilation. Gallbladder is normal. Pancreas is normal. Spleen is normal. Adrenal glands are normal. The kidneys are unremarkable without hydronephrosis. Bowel: A moderate hiatal hernia is present. No bowel obstruction. There are a few scattered colonic diverticula. Peritoneum: There is no intraperitoneal free fluid or free air. No suspicious lymphadenopathy. Vasculature: Calcification of the aorta without aneurysm. Musculoskeletal: Stable scattered sclerotic lesions throughout the spine. Multilevel degenerative changes of the spine. Surgical changes of the left breast. IMPRESSION: 1. Stable sclerotic osseous metastatic disease. 2. No new findings of metastatic disease in the chest or abdomen. 3. Hepatic steatosis. 4. Colonic diverticulosis without findings of diverticulitis. 5. Hiatal hernia. Dictated by: Dictated on workstation # [id number]
--- NOTE | 2020-10-03 16:06 | Diagnostic Imaging Report ---
INDICATION: History of breast cancer. COMPARISON: CT chest and abdomen of 10/03/2020 and whole-body bone scan dated 03/27/2020. TECHNIQUE: The patient received a 26 mCi intravenous dose of technetium 99 MDP and, after 3 hours, whole-body planar imaging was performed. FINDINGS: The subtle abnormal uptake involving the posteromedial left iliac bone is unchanged. Mildly elevated uptake in the mid to upper thoracic spine is unchanged. Uptake about the left nasal cavity and maxilla is unchanged. The calvarium is unremarkable. There are mild degenerative changes to the left greater than right knees and bilateral shoulders, unchanged. Some mild punctate uptake at the distal aspect of the left 4th or 5th rib is unchanged. There is some new right paramedian uptake along the lateral margin of the mid lumbar spine corresponding to bulky marginal osteophytes on CT. Soft tissue uptake and excretion into the urinary tracts is unchanged. IMPRESSION: 1. Uptake about the left nasal cavity and maxilla, left posterior iliac bone, and thoracic spine is unchanged. New uptake in the lumbar spine is believed to be on a degenerative basis. 2. No new suspicious finding. Dictated by: Dictated on workstation # [id number]
== END ==
LOC: CARD 10:30
PROVIDERS: ATTEND Nurse Practitioner Adult Health
DX: K76.0 Fatty (change of) liver, not elsewhere classified (principal); C79.51 Secondary malignant neoplasm of bone; K44.9 Diaphragmatic hernia without obstruction or gangrene; K57.30 Diverticulosis of large intestine without perforation or abscess without bleeding; Z85.3 Personal history of malignant neoplasm of breast; Z79.899 Other long term (current) drug therapy
CPT/HCPCS: 71260; 74170; 78306; 93306; A9503

== ENCOUNTER → 2020-10-10 | Outpatient (CLI) | payer MEDICARE, OTHER ==
[~2020-10-10] MED LIST changes: -CATHETER FLUSH 10 ML SYR IV PRN; -HOLD METFORMIN - RECEIVED CONTRAST 20 ML VIAL IV SCH; -IOHEXOL 350 MG/ML 100 ML (OMNIPAQUE 350) VIAL IV ONE; -NS 100 ML (IVPB) BAG IV ONE
[2020-10-10 10:08] LABS: URIC ACID 5.1 MG/DL (2.6-7.2)
== END ==
LOC: LAB 09:28
PROVIDERS: ATTEND Internal Medicine
DX: M10.031 Idiopathic gout, right wrist (principal)
CPT/HCPCS: 36415; 83036; 84550; 85652; 86141

== ENCOUNTER 2020-12-12 08:45 | Outpatient (RCR) | payer MEDICARE, OTHER ==
[2020-10-10 09:43] LABS: BASOPHILS % (AUTO) 0 % (0-10); EOSINOPHILS # (AUTO) 0.2 10^3/uL (0.0-0.3); EOSINOPHILS % (AUTO) 3 % (0-10); HEMATOCRIT 44 % (35-52); HEMOGLOBIN 13.9 g/dL (11.5-16.0); LYMPHOCYTES # (AUTO) 1.1 10^3/uL (1.0-4.0); LYMPHOCYTES % (AUTO) 20 % (12-44); MEAN CORPUSCULAR HEMOGLOBIN 29 pg (25-34); MEAN CORPUSCULAR HGB CONC 32 g/dL (32-36); MEAN CORPUSCULAR VOLUME 90 fL (80-99); MEAN PLATELET VOLUME 9.3 fL (9.0-12.2); MONOCYTES # (AUTO) 0.5 10^3/uL (0.0-1.0); MONOCYTES % (AUTO) 9 % (0-12); NEUTROPHILS # (AUTO) 3.9 10^3/uL (1.8-7.8); NEUTROPHILS % (AUTO) 69 % (42-75); PLATELET COUNT 276 10^3/uL (130-400); WHITE BLOOD COUNT 5.7 10^3/uL (4.3-11.0)
[2020-10-10 10:07] LABS: ALANINE AMINOTRANSFERASE 30 U/L (0-55); ALBUMIN 3.9 GM/DL (3.2-4.5); ALKALINE PHOSPHATASE 65 U/L (40-136); BILIRUBIN,TOTAL 0.5 MG/DL (0.1-1.0); BUN/CREATININE RATIO 23; CALCIUM 9.5 MG/DL (8.5-10.1); CARBON DIOXIDE 23 MMOL/L (21-32); CHLORIDE 106 MMOL/L (98-107); CREATININE SERUM 0.78 MG/DL (0.60-1.30); GFR ESTIMATED > 60; GLUCOSE 179 MG/DL (70-105); POTASSIUM 3.9 MMOL/L (3.6-5.0); SODIUM 139 MMOL/L (135-145); TOTAL PROTEIN 7.3 GM/DL (6.4-8.2)
[2020-11-21 09:18] LABS: BASOPHILS % (AUTO) 0 % (0-10); EOSINOPHILS # (AUTO) 0.1 10^3/uL (0.0-0.3); EOSINOPHILS % (AUTO) 1 % (0-10); HEMATOCRIT 42 % (35-52); HEMOGLOBIN 13.8 g/dL (11.5-16.0); LYMPHOCYTES # (AUTO) 1.5 10^3/uL (1.0-4.0); LYMPHOCYTES % (AUTO) 29 % (12-44); MEAN CORPUSCULAR HEMOGLOBIN 29 pg (25-34); MEAN CORPUSCULAR HGB CONC 33 g/dL (32-36); MEAN CORPUSCULAR VOLUME 89 fL (80-99); MEAN PLATELET VOLUME 9.7 fL (9.0-12.2); MONOCYTES # (AUTO) 0.5 10^3/uL (0.0-1.0); MONOCYTES % (AUTO) 9 % (0-12); NEUTROPHILS # (AUTO) 3.1 10^3/uL (1.8-7.8); NEUTROPHILS % (AUTO) 60 % (42-75); PLATELET COUNT 269 10^3/uL (130-400); WHITE BLOOD COUNT 5.1 10^3/uL (4.3-11.0)
[2020-11-21 09:29] LABS: ALANINE AMINOTRANSFERASE 30 U/L (0-55); ALKALINE PHOSPHATASE 62 U/L (40-136); BILIRUBIN,TOTAL 0.5 MG/DL (0.1-1.0); BUN/CREATININE RATIO 18; CALCIUM 9.3 MG/DL (8.5-10.1); CARBON DIOXIDE 21 MMOL/L (21-32); CHLORIDE 108 MMOL/L (98-107); CREATININE SERUM 0.77 MG/DL (0.60-1.30); GFR ESTIMATED > 60; GLUCOSE 137 MG/DL (70-105); POTASSIUM 3.6 MMOL/L (3.6-5.0); SODIUM 141 MMOL/L (135-145); TOTAL PROTEIN 7.2 GM/DL (6.4-8.2)
[~2020-12-12 08:45] MED LIST changes: +NS IV 1000 ML (CANCER CTR) IV SCH; +NS IV SCH; +TRASTUZUMAB ANNS IV SCH; +TRASTUZUMAB PKRB IV SCH; +ZOLEDRONIC ACID (CANCER CTR) 4 MG in NS (IVPB) CANCER CENTER 100 ML IV SCH
== END 2020-12-18 | disposition home or self-care (01) ==
LOC: ONC 08:45
PROVIDERS: ATTEND Internal Medicine Hematology & Oncology
DX: Z51.11 Encounter for antineoplastic chemotherapy (principal); C50.412 Malignant neoplasm of upper-outer quadrant of left female breast; C79.51 Secondary malignant neoplasm of bone; C77.3 Secondary and unspecified malignant neoplasm of axilla and upper limb lymph nodes; Z17.0 Estrogen receptor positive status [ER+]; Z79.899 Other long term (current) drug therapy
CPT/HCPCS: 36591; 80053; 85025; 86300; 96366; 96413

== ENCOUNTER 2021-02-06 06:00 | Outpatient (RCR) | payer MEDICARE, OTHER | END 2021-02-09 | disposition home or self-care (01) | LOC: CR3 06:00 | PROVIDERS: ATTEND Internal Medicine Hematology & Oncology | DX: Z29.8 Encounter for other specified prophylactic measures (principal) ==

== ENCOUNTER → 2021-02-06 | Outpatient (CLI) | payer MEDICARE, OTHER ==
[~2021-02-06] MED LIST changes: -NS IV 1000 ML (CANCER CTR) IV SCH; -NS IV SCH; -TRASTUZUMAB ANNS IV SCH; -TRASTUZUMAB PKRB IV SCH; -ZOLEDRONIC ACID (CANCER CTR) 4 MG in NS (IVPB) CANCER CENTER 100 ML IV SCH
== END ==
LOC: CARD 11:30
PROVIDERS: ATTEND Internal Medicine Hematology & Oncology
DX: Z51.11 Encounter for antineoplastic chemotherapy (principal); I51.7 Cardiomegaly
CPT/HCPCS: 93306

== ENCOUNTER → 2021-03-23 | Outpatient (CLI) | payer MEDICARE, OTHER ==
[~2021-03-23] MED LIST changes: +CATHETER FLUSH 10 ML SYR IV PRN; +HOLD METFORMIN - RECEIVED CONTRAST 20 ML VIAL IV SCH; +IOHEXOL 350 MG/ML 100 ML (OMNIPAQUE 350) VIAL IV ONE; +NS 100 ML (IVPB) BAG IV ONE
[2021-03-23] MEDS: CATHETER FLUSH 10 ML SYR IV PRN ×2 (09:41→10:48)
--- NOTE | 2021-03-23 11:12 | Diagnostic Imaging Report ---
EXAMINATION: CT chest and abdomen with intravenous contrast. TECHNIQUE: Multiple contiguous axial images were obtained through the chest and abdomen after the uneventful administration of intravenous contrast. All CT scans use one or more of the following dose optimizing techniques: automated exposure control, MA and/or KvP adjustment based on patient size and exam type or iterative reconstruction. HISTORY: Breast cancer COMPARISON: 01/07/2020 FINDINGS: There is no edema or pneumonia. No pleural effusion. No pneumothorax. No suspicious nodules. There are scattered areas of atelectasis or scarring in the lungs. There is no axillary or supraclavicular lymphadenopathy. There is no mediastinal lymphadenopathy. There are postsurgical changes of left breast resection. There is an unchanged 3.3 x 2.0 cm area of soft tissue thickening at the site of the resection. Heart size is normal. There are now coronary artery calcifications. No pericardial effusion. Aorta is normal in caliber. Liver is steatotic. No focal liver lesions are seen. There is no biliary ductal dilation. Gallbladder is normal. Pancreas is normal. Spleen is normal. Adrenal glands are normal. Simple cyst is seen in the right kidney. No suspicious renal lesions. There is no hydronephrosis. Visualized bowel is normal in caliber without obstruction or inflammation. No free fluid or air. No abdominal lymphadenopathy. Aorta is normal in caliber without aneurysm. There is unchanged T5 sclerotic lesion. There are unchanged T11 and L1 sclerotic lesions. Right-sided Port-A-Cath is present. IMPRESSION: 1. Unchanged area of soft tissue thickening at the site of the resection. 2. Unchanged sclerotic lesions in the spine. 3. Hepatic steatosis. Dictated by: Dictated on workstation # [id number]
--- NOTE | 2021-03-23 13:38 | Diagnostic Imaging Report ---
INDICATION: Breast carcinoma. Patient complains of right hip pain. Patient was administered 27.0 mCi technetium 99m MDP intravenously and whole-body imaging was performed after a three-hour delay. Correlation is made with prior whole body bone scan from 10/03/2020. There is normal uptake of activity by the axial and appendicular skeleton. There is uptake by both kidneys with excretion into the urinary bladder. Mild uptake in the upper thoracic spine is noted and unchanged, likely degenerative. Subtle uptake involving anterior left ribs appears stable. Uptake in the region of the left maxilla appears stable. No new suspicious foci are seen. IMPRESSION: Stable whole body bone scan when compared to examination from 10/03/2020. Dictated by: Dictated on workstation # [id number]
== END ==
LOC: CARD 11:00
PROVIDERS: ATTEND Nurse Practitioner Adult Health
DX: C50.412 Malignant neoplasm of upper-outer quadrant of left female breast (principal); C79.51 Secondary malignant neoplasm of bone; C77.3 Secondary and unspecified malignant neoplasm of axilla and upper limb lymph nodes; K76.0 Fatty (change of) liver, not elsewhere classified; G95.9 Disease of spinal cord, unspecified
CPT/HCPCS: 71260; 74160; 78306; A9503

== ENCOUNTER 2021-03-27 09:07 | Outpatient (RCR) | payer MEDICARE, OTHER ==
[2021-01-02 09:41] LABS: BASOPHILS % (AUTO) 1 % (0-10); EOSINOPHILS # (AUTO) 0.1 10^3/uL (0.0-0.3); EOSINOPHILS % (AUTO) 1 % (0-10); HEMATOCRIT 43 % (35-52); HEMOGLOBIN 13.7 g/dL (11.5-16.0); LYMPHOCYTES # (AUTO) 1.6 10^3/uL (1.0-4.0); LYMPHOCYTES % (AUTO) 30 % (12-44); MEAN CORPUSCULAR HEMOGLOBIN 29 pg (25-34); MEAN CORPUSCULAR HGB CONC 32 g/dL (32-36); MEAN CORPUSCULAR VOLUME 92 fL (80-99); MEAN PLATELET VOLUME 9.4 fL (9.0-12.2); MONOCYTES # (AUTO) 0.6 10^3/uL (0.0-1.0); MONOCYTES % (AUTO) 11 % (0-12); NEUTROPHILS % (AUTO) 57 % (42-75); PLATELET COUNT 256 10^3/uL (130-400); WHITE BLOOD COUNT 5.3 10^3/uL (4.3-11.0)
[2021-01-02 10:02] LABS: ALANINE AMINOTRANSFERASE 29 U/L (0-55); ALKALINE PHOSPHATASE 63 U/L (40-136); BILIRUBIN,TOTAL 0.5 MG/DL (0.1-1.0); BUN/CREATININE RATIO 23; CARBON DIOXIDE 26 MMOL/L (21-32); CHLORIDE 106 MMOL/L (98-107); CREATININE SERUM 0.71 MG/DL (0.60-1.30); GFR ESTIMATED > 60; GLUCOSE 102 MG/DL (70-105); SODIUM 139 MMOL/L (135-145); TOTAL PROTEIN 7.3 GM/DL (6.4-8.2)
[2021-02-13 11:01] LABS: BASOPHILS % (AUTO) 1 % (0-10); EOSINOPHILS # (AUTO) 0.1 10^3/uL (0.0-0.3); EOSINOPHILS % (AUTO) 1 % (0-10); HEMATOCRIT 42 % (35-52); HEMOGLOBIN 13.5 g/dL (11.5-16.0); LYMPHOCYTES # (AUTO) 1.3 10^3/uL (1.0-4.0); LYMPHOCYTES % (AUTO) 22 % (12-44); MEAN CORPUSCULAR HEMOGLOBIN 29 pg (25-34); MEAN CORPUSCULAR HGB CONC 32 g/dL (32-36); MEAN CORPUSCULAR VOLUME 89 fL (80-99); MEAN PLATELET VOLUME 9.7 fL (9.0-12.2); MONOCYTES # (AUTO) 0.6 10^3/uL (0.0-1.0); MONOCYTES % (AUTO) 10 % (0-12); NEUTROPHILS # (AUTO) 3.9 10^3/uL (1.8-7.8); NEUTROPHILS % (AUTO) 67 % (42-75); PLATELET COUNT 194 10^3/uL (130-400); WHITE BLOOD COUNT 5.8 10^3/uL (4.3-11.0)
[2021-02-13 11:25] LABS: ALANINE AMINOTRANSFERASE 27 U/L (0-55); ALKALINE PHOSPHATASE 54 U/L (40-136); BILIRUBIN,TOTAL 0.3 MG/DL (0.1-1.0); BUN/CREATININE RATIO 18; CALCIUM 8.8 MG/DL (8.5-10.1); CARBON DIOXIDE 24 MMOL/L (21-32); CHLORIDE 107 MMOL/L (98-107); CREATININE SERUM 0.78 MG/DL (0.60-1.30); GFR ESTIMATED > 60; GLUCOSE 120 MG/DL (70-105); POTASSIUM 3.7 MMOL/L (3.6-5.0); SODIUM 139 MMOL/L (135-145); TOTAL PROTEIN 6.9 GM/DL (6.4-8.2)
[~2021-03-27 09:07] MED LIST changes: -CATHETER FLUSH 10 ML SYR IV PRN; -HOLD METFORMIN - RECEIVED CONTRAST 20 ML VIAL IV SCH; -IOHEXOL 350 MG/ML 100 ML (OMNIPAQUE 350) VIAL IV ONE; -NS 100 ML (IVPB) BAG IV ONE; +NS IV 1000 ML (CANCER CTR) IV SCH; +NS IV SCH; +TRASTUZUMAB PKRB IV SCH; +ZOLEDRONIC ACID (CANCER CTR) 4 MG in NS (IVPB) CANCER CENTER 100 ML IV SCH
[2021-03-27 09:35] LABS: BASOPHILS % (AUTO) 1 % (0-10); EOSINOPHILS # (AUTO) 0.1 10^3/uL (0.0-0.3); EOSINOPHILS % (AUTO) 2 % (0-10); HEMATOCRIT 45 % (35-52); HEMOGLOBIN 14.3 g/dL (11.5-16.0); LYMPHOCYTES # (AUTO) 1.5 10^3/uL (1.0-4.0); LYMPHOCYTES % (AUTO) 23 % (12-44); MEAN CORPUSCULAR HEMOGLOBIN 29 pg (25-34); MEAN CORPUSCULAR HGB CONC 32 g/dL (32-36); MEAN CORPUSCULAR VOLUME 89 fL (80-99); MEAN PLATELET VOLUME 9.9 fL (9.0-12.2); MONOCYTES # (AUTO) 0.7 10^3/uL (0.0-1.0); MONOCYTES % (AUTO) 11 % (0-12); NEUTROPHILS # (AUTO) 3.9 10^3/uL (1.8-7.8); NEUTROPHILS % (AUTO) 63 % (42-75); PLATELET COUNT 233 10^3/uL (130-400); WHITE BLOOD COUNT 6.2 10^3/uL (4.3-11.0)
[2021-03-27 09:52] LABS: ALANINE AMINOTRANSFERASE 34 U/L (0-55); ALKALINE PHOSPHATASE 55 U/L (40-136); BILIRUBIN,TOTAL 0.4 MG/DL (0.1-1.0); BUN/CREATININE RATIO 16; CARBON DIOXIDE 24 MMOL/L (21-32); CHLORIDE 105 MMOL/L (98-107); CREATININE SERUM 0.75 MG/DL (0.60-1.30); GFR ESTIMATED > 60; GLUCOSE 99 MG/DL (70-105); POTASSIUM 3.9 MMOL/L (3.6-5.0); SODIUM 139 MMOL/L (135-145); TOTAL PROTEIN 7.3 GM/DL (6.4-8.2)
== END 2021-04-02 | disposition home or self-care (01) ==
LOC: ONC 09:07
PROVIDERS: ATTEND Internal Medicine Hematology & Oncology
DX: Z51.11 Encounter for antineoplastic chemotherapy (principal); C50.412 Malignant neoplasm of upper-outer quadrant of left female breast; C79.51 Secondary malignant neoplasm of bone; C77.3 Secondary and unspecified malignant neoplasm of axilla and upper limb lymph nodes; Z17.0 Estrogen receptor positive status [ER+]; Z79.899 Other long term (current) drug therapy
CPT/HCPCS: 80053; 85025; 96367; 96413; G0463; 36591; 86300

== ENCOUNTER → 2021-04-30 | Outpatient (CLI) | payer MEDICARE, OTHER ==
[~2021-04-30] MED LIST changes: -NS IV 1000 ML (CANCER CTR) IV SCH; -NS IV SCH; -TRASTUZUMAB PKRB IV SCH; -ZOLEDRONIC ACID (CANCER CTR) 4 MG in NS (IVPB) CANCER CENTER 100 ML IV SCH
== END ==
LOC: CARD 09:36
PROVIDERS: ATTEND Internal Medicine Hematology & Oncology
DX: I34.0 Nonrheumatic mitral (valve) insufficiency (principal); C50.412 Malignant neoplasm of upper-outer quadrant of left female breast; C77.3 Secondary and unspecified malignant neoplasm of axilla and upper limb lymph nodes; C79.51 Secondary malignant neoplasm of bone
CPT/HCPCS: 93306

== ENCOUNTER 2021-07-09 13:40 | Outpatient (RCR) | payer MEDICARE, OTHER ==
[2021-05-08 09:56] LABS: BASOPHILS % (AUTO) 1 % (0-10); EOSINOPHILS # (AUTO) 0.1 10^3/uL (0.0-0.3); EOSINOPHILS % (AUTO) 1 % (0-10); HEMATOCRIT 43 % (35-52); HEMOGLOBIN 14.1 g/dL (11.5-16.0); LYMPHOCYTES # (AUTO) 1.1 10^3/uL (1.0-4.0); LYMPHOCYTES % (AUTO) 19 % (12-44); MEAN CORPUSCULAR HEMOGLOBIN 29 pg (25-34); MEAN CORPUSCULAR HGB CONC 33 g/dL (32-36); MEAN CORPUSCULAR VOLUME 89 fL (80-99); MEAN PLATELET VOLUME 10.2 fL (9.0-12.2); MONOCYTES # (AUTO) 0.6 10^3/uL (0.0-1.0); MONOCYTES % (AUTO) 11 % (0-12); NEUTROPHILS # (AUTO) 3.9 10^3/uL (1.8-7.8); NEUTROPHILS % (AUTO) 68 % (42-75); PLATELET COUNT 197 10^3/uL (130-400); WHITE BLOOD COUNT 5.7 10^3/uL (4.3-11.0)
[2021-05-08 10:14] LABS: ALBUMIN 3.9 GM/DL (3.2-4.5); BILIRUBIN,TOTAL 0.5 MG/DL (0.1-1.0); CALCIUM 9.4 MG/DL (8.5-10.1); CREATININE SERUM 0.75 MG/DL (0.60-1.30); POTASSIUM 3.8 MMOL/L (3.6-5.0); TOTAL PROTEIN 7.4 GM/DL (6.4-8.2)
[2021-06-19 09:07] LABS: BASOPHILS % (AUTO) 1 % (0-10); HEMATOCRIT 44 % (35-52); MEAN CORPUSCULAR VOLUME 90 fL (80-99); MEAN PLATELET VOLUME 9.8 fL (9.0-12.2)
[2021-06-19 09:09] LABS: EOSINOPHILS # (AUTO) 0.1 10^3/uL (0.0-0.3); EOSINOPHILS % (AUTO) 2 % (0-10); HEMOGLOBIN 14.3 g/dL (11.5-16.0); LYMPHOCYTES # (AUTO) 1.4 10^3/uL (1.0-4.0); LYMPHOCYTES % (AUTO) 26 % (12-44); MEAN CORPUSCULAR HEMOGLOBIN 29 pg (25-34); MEAN CORPUSCULAR HGB CONC 32 g/dL (32-36); MONOCYTES # (AUTO) 0.5 10^3/uL (0.0-1.0); MONOCYTES % (AUTO) 9 % (0-12); NEUTROPHILS # (AUTO) 3.5 10^3/uL (1.8-7.8); NEUTROPHILS % (AUTO) 63 % (42-75); PLATELET COUNT 169 10^3/uL (130-400); WHITE BLOOD COUNT 5.5 10^3/uL (4.3-11.0)
[2021-06-19 09:26] LABS: BILIRUBIN,TOTAL 0.6 MG/DL (0.1-1.0); CALCIUM 9.2 MG/DL (8.5-10.1); CREATININE SERUM 0.75 MG/DL (0.60-1.30); POTASSIUM 3.6 MMOL/L (3.6-5.0); TOTAL PROTEIN 7.4 GM/DL (6.4-8.2)
[~2021-07-09 13:40] MED LIST changes: +ALTEPLASE 2 MG (CATHFLO) CANCER CENTER IV ONE; +NS IV 1000 ML (CANCER CTR) IV SCH; +NS IV SCH; +TRASTUZUMAB PKRB IV SCH; +ZOLEDRONIC ACID (CANCER CTR) 4 MG in NS (IVPB) CANCER CENTER 100 ML IV SCH
[2021-07-09 14:37] LABS: BASOPHILS % (AUTO) 0 % (0-10); EOSINOPHILS # (AUTO) 0.1 10^3/uL (0.0-0.3); EOSINOPHILS % (AUTO) 2 % (0-10); HEMATOCRIT 41 % (35-52); HEMOGLOBIN 13.3 g/dL (11.5-16.0); LYMPHOCYTES # (AUTO) 1.5 X 10^3 (1.0-4.0); LYMPHOCYTES % (AUTO) 27 % (12-44); MEAN CORPUSCULAR HEMOGLOBIN 29 pg (25-34); MEAN CORPUSCULAR HGB CONC 32 g/dL (32-36); MEAN CORPUSCULAR VOLUME 89 fL (80-99); MEAN PLATELET VOLUME 10.1 fL (9.0-12.2); MONOCYTES # (AUTO) 0.6 X 10^3 (0.0-1.0); MONOCYTES % (AUTO) 11 % (0-12); NEUTROPHILS # (AUTO) 3.3 X 10^3 (1.8-7.8); NEUTROPHILS % (AUTO) 59 % (42-75); PLATELET COUNT 145 10^3/uL (130-400); WHITE BLOOD COUNT 5.6 10^3/uL (4.3-11.0)
[2021-07-09 14:49] LABS: BILIRUBIN,TOTAL 0.4 MG/DL (0.1-1.0); CALCIUM 8.7 MG/DL (8.5-10.1); CREATININE SERUM 0.76 MG/DL (0.60-1.30)
== END 2021-07-16 | disposition home or self-care (01) ==
LOC: ONC 13:40
PROVIDERS: ATTEND Internal Medicine Hematology & Oncology
DX: Z51.11 Encounter for antineoplastic chemotherapy (principal); C50.412 Malignant neoplasm of upper-outer quadrant of left female breast; C79.51 Secondary malignant neoplasm of bone; C77.3 Secondary and unspecified malignant neoplasm of axilla and upper limb lymph nodes; Z17.0 Estrogen receptor positive status [ER+]; Z79.899 Other long term (current) drug therapy
CPT/HCPCS: 36591; 36593; 80053; 82306; 85025; 86300; 96365; 96413

== ENCOUNTER 2021-08-21 09:13 | Outpatient (RCR) | payer MEDICARE, OTHER ==
[~2021-08-21 09:13] MED LIST changes: -ALTEPLASE 2 MG (CATHFLO) CANCER CENTER IV ONE
[2021-08-21 09:42] LABS: BASOPHILS % (AUTO) 1 % (0-10); EOSINOPHILS # (AUTO) 0.1 10^3/uL (0.0-0.3); EOSINOPHILS % (AUTO) 1 % (0-10); HEMATOCRIT 43 % (35-52); LYMPHOCYTES # (AUTO) 1.4 10^3/uL (1.0-4.0); LYMPHOCYTES % (AUTO) 24 % (12-44); MEAN CORPUSCULAR HEMOGLOBIN 29 pg (25-34); MEAN CORPUSCULAR HGB CONC 33 g/dL (32-36); MEAN CORPUSCULAR VOLUME 90 fL (80-99); MEAN PLATELET VOLUME 9.4 fL (9.0-12.2); MONOCYTES # (AUTO) 0.6 10^3/uL (0.0-1.0); MONOCYTES % (AUTO) 10 % (0-12); NEUTROPHILS # (AUTO) 3.7 10^3/uL (1.8-7.8); NEUTROPHILS % (AUTO) 64 % (42-75); PLATELET COUNT 262 10^3/uL (130-400); WHITE BLOOD COUNT 5.8 10^3/uL (4.3-11.0)
[2021-08-21 10:07] LABS: ALBUMIN 3.9 GM/DL (3.2-4.5); BILIRUBIN,TOTAL 0.5 MG/DL (0.1-1.0); CALCIUM 9.1 MG/DL (8.5-10.1); CREATININE SERUM 0.76 MG/DL (0.60-1.30); POTASSIUM 3.7 MMOL/L (3.6-5.0); TOTAL PROTEIN 7.2 GM/DL (6.4-8.2)
== END 2021-09-07 | disposition home or self-care (01) ==
LOC: ONC 09:13
PROVIDERS: ATTEND Internal Medicine Hematology & Oncology
DX: Z51.11 Encounter for antineoplastic chemotherapy (principal); C50.412 Malignant neoplasm of upper-outer quadrant of left female breast; C79.51 Secondary malignant neoplasm of bone; C77.3 Secondary and unspecified malignant neoplasm of axilla and upper limb lymph nodes; E66.9 Obesity, unspecified; Z17.0 Estrogen receptor positive status [ER+]; Z79.899 Other long term (current) drug therapy
CPT/HCPCS: 36591; 80053; 85025; 86300; 96365; 96413

== ENCOUNTER → 2021-09-04 | Outpatient (CLI) | payer MEDICARE, OTHER ==
[~2021-09-04] MED LIST changes: -NS IV 1000 ML (CANCER CTR) IV SCH; -NS IV SCH; -TRASTUZUMAB PKRB IV SCH; -ZOLEDRONIC ACID (CANCER CTR) 4 MG in NS (IVPB) CANCER CENTER 100 ML IV SCH
== END ==
LOC: CARD 09:30
PROVIDERS: ATTEND Internal Medicine Hematology & Oncology
DX: I51.7 Cardiomegaly (principal); I35.8 Other nonrheumatic aortic valve disorders; Z79.899 Other long term (current) drug therapy
CPT/HCPCS: 93306

== ENCOUNTER 2021-09-11 08:54 | Outpatient (RCR) | payer MEDICARE, OTHER ==
[~2021-09-11 08:54] MED LIST changes: +NS IV 1000 ML (CANCER CTR) IV SCH; +NS IV SCH; +TRASTUZUMAB PKRB IV SCH; +ZOLEDRONIC ACID (CANCER CTR) 4 MG in NS (IVPB) CANCER CENTER 100 ML IV SCH
== END 2021-10-08 | disposition home or self-care (01) ==
LOC: ONC 08:54
PROVIDERS: ATTEND Internal Medicine Hematology & Oncology
DX: Z51.11 Encounter for antineoplastic chemotherapy (principal); C50.412 Malignant neoplasm of upper-outer quadrant of left female breast; C79.51 Secondary malignant neoplasm of bone; C77.3 Secondary and unspecified malignant neoplasm of axilla and upper limb lymph nodes; E66.9 Obesity, unspecified; Z17.0 Estrogen receptor positive status [ER+]; Z79.899 Other long term (current) drug therapy
CPT/HCPCS: 96365

== ENCOUNTER → 2021-12-18 | Outpatient (CLI) | payer MEDICARE, OTHER ==
[~2021-12-18] MED LIST changes: -NS IV 1000 ML (CANCER CTR) IV SCH; -NS IV SCH; -TRASTUZUMAB PKRB IV SCH; -ZOLEDRONIC ACID (CANCER CTR) 4 MG in NS (IVPB) CANCER CENTER 100 ML IV SCH
== END ==
LOC: CARD 09:00
PROVIDERS: ATTEND Internal Medicine Hematology & Oncology
DX: Z51.11 Encounter for antineoplastic chemotherapy (principal); I51.7 Cardiomegaly; C50.412 Malignant neoplasm of upper-outer quadrant of left female breast; R29.898 Other symptoms and signs involving the musculoskeletal system; R26.81 Unsteadiness on feet
CPT/HCPCS: 93306

== ENCOUNTER → 2022-04-26 | Outpatient (CLI) | payer MEDICARE, OTHER ==
[~2022-04-26] MED LIST changes: +CATHETER FLUSH 10 ML SYR IVP PRN
--- NOTE | 2022-04-26 14:07 | Diagnostic Imaging Report ---
INDICATION: Left breast cancer. Patient was administered 24 mCi technetium 99m MDP intravenously and whole-body imaging was performed after 3 hour delay. Correlation is made with prior whole body bone scan from 03/23/2021. Normal uptake of activity by the axial and appendicular skeletons noted. There is uptake by the kidneys with excretion to urinary bladder. There is some mild uptake in the lumbar spine, stable. The mild uptake upper thoracic spine appears stable. Uptake in the left maxilla is unchanged. No suspicious foci are seen to suggest osseous metastatic disease. IMPRESSION: Stable whole body bone scan. There is no scintigraphic evidence of osseous metastatic disease. Dictated by: Dictated on workstation # [id number]
== END ==
LOC: CARD 11:00
PROVIDERS: ATTEND Internal Medicine Hematology & Oncology
DX: Z51.12 Encounter for antineoplastic immunotherapy (principal); C50.412 Malignant neoplasm of upper-outer quadrant of left female breast; C77.3 Secondary and unspecified malignant neoplasm of axilla and upper limb lymph nodes; C79.51 Secondary malignant neoplasm of bone; Z79.899 Other long term (current) drug therapy
CPT/HCPCS: 78306; 93306; A9503

== ENCOUNTER → 2022-07-11 | Outpatient (CLI) | payer MEDICARE, OTHER ==
[~2022-07-11] MED LIST changes: -CATHETER FLUSH 10 ML SYR IVP PRN
== END ==
LOC: CARD 10:00
PROVIDERS: ATTEND Internal Medicine Hematology & Oncology
DX: Z51.12 Encounter for antineoplastic immunotherapy (principal); C50.412 Malignant neoplasm of upper-outer quadrant of left female breast; C77.3 Secondary and unspecified malignant neoplasm of axilla and upper limb lymph nodes; C76.51 Malignant neoplasm of right lower limb; Z79.899 Other long term (current) drug therapy
CPT/HCPCS: 93306

== ENCOUNTER → 2022-10-10 | Outpatient (CLI) | payer MEDICARE, OTHER ==
--- NOTE | 2022-10-10 14:27 | Diagnostic Imaging Report ---
Indication: Breast cancer. Patient was administered 25.1 mCi technetium 99m MDP intravenously and whole-body imaging was performed after a three-hour delay. Correlation is made with prior bone scan from 04/26/2022. Mild uptake in the lumbar spine is similar to prior exam. Uptake in the maxilla and bilateral shoulders is stable. There is some degenerative uptake about the knees bilaterally. No new foci of abnormal tracer accumulation is identified. IMPRESSION: Continued stable whole-body bone scan when compared with an exam from 04/26/2022. Dictated by: Dictated on workstation # [id number]
== END ==
LOC: CARD 10:49
PROVIDERS: ATTEND Internal Medicine Hematology & Oncology
DX: I51.7 Cardiomegaly (principal); C50.412 Malignant neoplasm of upper-outer quadrant of left female breast; C79.51 Secondary malignant neoplasm of bone; C77.3 Secondary and unspecified malignant neoplasm of axilla and upper limb lymph nodes; Z79.811 Long term (current) use of aromatase inhibitors
CPT/HCPCS: 78306; A9503; C8929; 93306

== ENCOUNTER → 2023-02-11 | Outpatient (CLI) | payer MEDICARE, OTHER | LOC: CARD 08:22 | PROVIDERS: ATTEND Nurse Practitioner | DX: Z51.11 Encounter for antineoplastic chemotherapy (principal); Z51.12 Encounter for antineoplastic immunotherapy; I51.7 Cardiomegaly; C50.412 Malignant neoplasm of upper-outer quadrant of left female breast; C77.3 Secondary and unspecified malignant neoplasm of axilla and upper limb lymph nodes; C79.51 Secondary malignant neoplasm of bone; Z79.811 Long term (current) use of aromatase inhibitors | CPT/HCPCS: 93306 ==

== ENCOUNTER → 2023-05-13 | Outpatient (CLI) | payer MEDICARE, OTHER ==
--- NOTE | 2023-05-13 16:11 | Diagnostic Imaging Report ---
EXAMINATION: Bone scintigraphy, whole body HISTORY: Left breast cancer TECHNIQUE: 26.7 [id number] were administered intravenously. Anterior posterior projection whole body scintigrams were obtained after 3 hours of uptake. FINDINGS: Comparison is to 10/10/2022. There is physiologic radiotracer uptake throughout the axial and appendicular skeleton. There is degenerative uptake in the shoulders, unchanged. Focal uptake at the level of L2 and L3 on the right is unchanged. Small focus of uptake in the left anterior fourth rib is unchanged. Small amount of focus of uptake in the right posterior second rib is unchanged. There is degenerative uptake in the knees and ankles. IMPRESSION: 1. Unchanged exam with scattered areas of degenerative uptake and indeterminate uptake in the lumbar spine and ribs. Dictated by: Dictated on workstation # [id number]
== END ==
LOC: CARD 09:00
PROVIDERS: ATTEND Nurse Practitioner
DX: I51.7 Cardiomegaly (principal); C50.412 Malignant neoplasm of upper-outer quadrant of left female breast; C77.3 Secondary and unspecified malignant neoplasm of axilla and upper limb lymph nodes; C79.51 Secondary malignant neoplasm of bone
CPT/HCPCS: 78306; A9503; C8929; 93306